=== PATIENT | male | born 1940 | race Caucasian/White ===

== ENCOUNTER 2018-01-24 23:29 | Emergency (ER) | payer OTHER ==
[~2018-01-24] VITALS: Ht 162.6 cm; Wt 84.8 kg
[~2018-01-24 23:29] MED LIST: ARGI500T3 PO; CINN500T PO; FENU1CAP2 PO; GYMNEMA SYLVESTRE PO; LEVO500T78 PO; OMEG10007 PO; PSYL55.43 PO; Potassium PO; RED600TA PO
[2018-01-24 23:38] VITALS: TEMP 37.5; Ht 162.6 cm; Wt 84.8 kg
--- NOTE | 2018-01-24 23:40 | EMERGENCY ROOM VISIT NOTE ---
History Report prepared by Rosy: Kd Foster Under the Supervision of: Dr. Ruiz Goldstein M.D. First contact with patient: 23:32 Chief Complaint: NOSE BLEED (MINOR) Stated Complaint: EPISTAXIS History of Present Illness The patient is a 77 year old white male with a past medical history of DM and trigeminal myalgia surgery who presents to the ED with a cc of constant epistaxis beginning around 2200. The patient states that he was at the sink when he randomly developed right sided epistaxis. Positive tobacco use. Negative blood thinners, falls, lightheadedness, dizziness. Source of History: patient Onset: 0 Position: other (right nostril) Quality: other (bleeding) Timing: constant Note: Negative: lightheadedness, dizziness, falls. Review of Systems See HPI for pertinent positives and negatives. A total of ten systems were reviewed and were otherwise negative. Past Medical & Surgical Medical Problems: (1) Diabetes Family History Diabetes mellitus Social History Smoking Status: Never Smoker Alcohol Use: none Marital Status: Housing Status: lives with significant other Occupation Status: retired Current/Historical Medications Scheduled Amoxicillin & Pot Clavulanate (Augmentin 875-125 mg), 875 MG PO BID Arginine (L-Arginine), 500 MG PO BID Cinnamon (Cinnamon), 1,000 MG PO BID Fenugreek (Trigonella Foenum-G (Fenugreek), 1,220 MG PO BID Fish Oil ([place]-3), 2 CAPSULES PO BID Levocarnitine (L-Carnitine), 500 MG PO BID Psyllium (Metamucil Powder), 1 TBS PO QPM Red Yeast Rice Extract (Red Yeast Rice), 600 MG PO BID [Gymnema Thomas], 400 MG PO BID [Potassium], 1 TABLET PO BID Allergies Coded Allergies: BEE STING (Unverified Allergy, Mild, ANAPHYLAXIS, 02/04/12) No Known Allergies (Verified , 01/06/03) Uncoded Allergies: N (Allergy, Unknown, 01/06/03) NKDA (Allergy, Unknown, 01/06/03) Physical Exam Vital Signs Date Time Temp Pulse Resp B/P (MAP) Pulse Ox O2 Delivery O2 Flow Rate FiO2 01/25/18 01:00 94 21 139/98 93 Room Air 01/25/18 00:31 102 21 120/81 93 Room Air 01/25/18 00:01 122 18 119/87 95 Room Air 01/24/18 23:38 37.5 117 20 181/137 97 Room Air Physical Exam GENERAL: Awake, alert, well-appearing, NAD HENT: Normocephalic, atraumatic. Bleeding to the medial wall of the right nostril. EYES: Normal conjunctiva. Sclera non-icteric. NECK: Supple. No nuchal rigidity. FROM. RESPIRATORY: CTAB, no rhonchi, wheezing, crackles CARDIAC: tachycardic, regular, no MRG ABDOMEN: Soft, NTND, BS+ MSK: No chest wall TTP, no LE edema NEURO: GCS 15, CN 2-12 intact, moves all 4s on command SKIN: No rash or jaundice noted. Medical Decision & Procedures Laboratory Results 01/25/18 00:37 Red Blood Count 4.78, Mean Corpuscular Volume 84.5, Mean Corpuscular Hemoglobin 28.5, Mean Corpuscular Hemoglobin Concent 33.7, Mean Platelet Volume 10.9, Neutrophils (%) (Auto) 67.4, Lymphocytes (%) (Auto) 23.8, Monocytes (%) (Auto) 7.3, Eosinophils (%) (Auto) 1.0, Basophils (%) (Auto) 0.2, Neutrophils # (Auto) 6.09, Lymphocytes # (Auto) 2.15, Monocytes # (Auto) 0.66, Eosinophils # (Auto) 0.09, Basophils # (Auto) 0.02 01/25/18 00:37 Test 01/25/18 00:37 White Blood Count 9.04 K/uL (4.8-10.8) Red Blood Count 4.78 M/uL (4.7-6.1) Hemoglobin 13.6 g/dL (14.0-18.0) Hematocrit 40.4 % (42-52) Mean Corpuscular Volume 84.5 fL (80-100) Mean Corpuscular Hemoglobin 28.5 pg (25-34) Mean Corpuscular Hemoglobin Concent 33.7 g/dl (32-36) Platelet Count 151 K/uL (130-400) Mean Platelet Volume 10.9 fL (7.4-10.4) Neutrophils (%) (Auto) 67.4 % Lymphocytes (%) (Auto) 23.8 % Monocytes (%) (Auto) 7.3 % Eosinophils (%) (Auto) 1.0 % Basophils (%) (Auto) 0.2 % Neutrophils # (Auto) 6.09 K/uL (1.4-6.5) Lymphocytes # (Auto) 2.15 K/uL (1.2-3.4) Monocytes # (Auto) 0.66 K/uL (0.11-0.59) Eosinophils # (Auto) 0.09 K/uL (0-0.5) Basophils # (Auto) 0.02 K/uL (0-0.2) RDW Standard Deviation 40.4 fL (36.4-46.3) RDW Coefficient of Variation 13.2 % (11.5-14.5) Immature Granulocyte % (Auto) 0.3 % Immature Granulocyte # (Auto) 0.03 K/uL (0.00-0.02) Prothrombin Time 11.5 SECONDS (9.0-12.0) Prothromb Time International Ratio 1.1 (0.9-1.1) Activated Partial Thromboplast Time 25.0 SECONDS (21.0-31.0) Partial Thromboplastin Ratio 1.0 Anion Gap 7.0 mmol/L (3-11) Est Creatinine Clear Calc Drug Dose 50.6 ml/min Estimated GFR () 65.5 Estimated GFR (Non- 56.5 BUN/Creatinine Ratio 18.1 (10-20) Calcium Level 8.4 mg/dl (8.5-10.1) Laboratory results reviewed by me Medications Administered Medications (Trade) Dose Ordered Sig/Floyd Route Start Time Stop Time Status Last Admin Dose Admin Lidocaine/ Epinephrine (Buffered Xylocaine/ Epinephrine 1% Inj) 20 ml STK-MED ONCE INFIL 01/24/18 23:53 01/24/18 23:54 DC 01/24/18 23:53 20 ML Sodium Chloride 1,000 ml @ 999 mls/hr Q1H1M STAT IV 01/25/18 00:02 01/25/18 01:02 DC 01/25/18 00:22 999 MLS/HR Ondansetron HCl (Zofran Inj) 4 mg NOW STAT IV 01/25/18 00:18 01/25/18 00:19 DC 01/25/18 00:22 4 MG Procedure Anterior Nasal Packing Indication: Epistaxis Verbal consent obtained. Risks and benefits were explained with the usual customary discussion. A time out was taken. Clots were removed with suction. The right naris was prepped with Afrin and lidocaine. A 5.5-cm nasal balloon was placed in a standard fashion. The patient tolerated this well. Hemostasis was achieved. No complications. ECG Per My Interpretation Indication: tachycardia Rate (beats per minute): 102 Rhythm: sinus tachycardia Findings: left axis deviation, no ectopy ED Course 2348: The patient was evaluated in room A03. A complete history and physical exam was performed. 2358: I performed an anterior nasal packaging. See the procedure notes for further details. 0117: I reevaluated the patient. Discussed results and discharge instructions: He verbalized understanding and agreement. The patient is ready for discharge. Medical Decision Triage Nursing notes reviewed. Prior records reviewed. The patient is a 77 year old white male with a past medical history of DM and trigeminal myalgia surgery who presents to the ED with a cc of constant epistaxis beginning around 2200. The patient's presentation and history were concerning for etiologies such as anterior epistaxis, coagulopathy, traumatic injury, fracture, septal hematoma, posterior epistaxis as well as other pathologies were entertained. Patient was seen and evaluated the bedside. Patient did complain of some epistaxis that began around 10 PM. Patient states it was unprovoked. Patient has had no prior procedures to the area. Patient denies any headaches, chest pain, shortness of breath, dizziness, lightheadedness. The patient did not have any syncope or falls. On exam the patient does have some clot in the posterior pharynx. The patient also does have some bleeding to the septum of the right nares. Patient does have some tachycardia. The patient did have blood work completed along with IV fluids. I did place a 5-1/2 cm anterior Rhino Rocket. Patient tolerated this without difficulty. The patient's blood work did show some mild anemia. Patient did have normal platelet count. Coagulation studies normal. Patient's tachycardia improved with fluids and the patient was in the 90s. Patient was told that he would be called on Friday for an appointment with ENT. If this was unable to be arranged that same day he was supposed to return to the emergency department to have his packing removed. Patient was given a first dose of prophylactic antibiotics. Patient tolerated this without difficulty. Patient was given a prescription for home. Patient was given strict follow-up, discharge, and return precautions. All questions were answered. Patient was deemed suitable for outpatient follow-up at this time. Patient agreed with the plan of care and was safely discharged home. Medication Reconcilliation Current Medication List: was personally reviewed by me Blood Pressure Screening Patient's blood pressure: Normal blood pressure Impression Primary Impression: Epistaxis Additional Impression: Anemia Scribe Attestation The scribe's documentation has been prepared under my direction and personally reviewed by me in its entirety. I confirm that the note above accurately reflects all work, treatment, procedures, and medical decision making performed by me. Departure Information Dispostion Home / Self-Care Prescriptions Amoxicillin & Pot Clavulanate (Augmentin 875-125 mg) 1 Tab Tab 875 MG PO BID for 2 Days, #4 TAB Prov: Ruiz Goldstein M.D. 01/25/18 Referrals Jamli Catalan M.D. (PCP) Soham Herrera M.D. Patient Instructions ED Nosebleed, [facility] Additional Instructions Please return to the emergency department if you have worsening or recurrent symptoms not amenable to at-home treatment. Please call for a follow-up appointment with her primary care physician. Please take your medications as prescribed. If you have other concerns and/or complaints please feel free to also call your primary care physician's office or return the ED for further evaluation, management, and treatment. You were found to have an elevated blood pressure today (>120 sytolic or >90 diastolic). Per medicare guidelines, you need to follow up with this blood pressure screening with your Primary Care Physician (PCP). For a new PCP call [phone]. Take your medications as prescribed. Please take your antibiotics as prescribed. You should take this with food. Consider taking it with either yogurt or a probiotic. You have been examined and treated today on an emergency basis only. This is not a substitute for, or an effort to provide, complete comprehensive medical care. It is impossible to recognize and treat all injuries or illnesses in a single emergency department visit. It is therefore important that you follow up closely with [facility], your PCP, and/or your specialist(s). Call as soon as possible for an appointment. Thank you for your time and consideration. I look forward to speaking with you again soon. Please don't hesitate to call us if you have any questions. Problem Qualifiers Additional Impression: Anemia Anemia type: unspecified type Qualified Codes: D64.9 - Anemia, unspecified
[2018-01-24] MEDS ORDERED: LIDO/EPINEPHRINE/SOD BICARB 20 ML VIAL INFIL ONE (23:53)
[2018-01-25] MEDS ORDERED: SODIUM CHLORIDE 0.9% 1000ML 1,000 ML IV STA (00:02)
[2018-01-25] MEDS ORDERED: XYLOCAINE 1%/SOD BICARB 20 ML VIAL INFIL ONE (00:15)
[2018-01-25] MEDS ORDERED: ONDANSETRON INJ 2 MG/ML 2 ML VIAL IV STA (00:18)
[2018-01-25 00:56] LABS: BASO % 0.2 %; BASO ABS # 0.02 K/uL (0-0.2); EOS ABS # 0.09 K/uL (0-0.5); HEMATOCRIT 40.4 % (42-52); HEMOGLOBIN 13.6 g/dL (14.0-18.0); IG# 0.03 K/uL (0.00-0.02); LYMPH % 23.8 %; LYMPH ABS # 2.15 K/uL (1.2-3.4); MEAN CELL VOLUME 84.5 fL (80-100); MEAN CORPUSCULAR HEMOGLOBIN 28.5 pg (25-34); MEAN CORPUSCULAR HGB CONC 33.7 g/dl (32-36); MEAN PLATELET VOLUME 10.9 fL (7.4-10.4); MONO % 7.3 %; MONO ABS # 0.66 K/uL (0.11-0.59); NEUT % 67.4 %; NEUT ABS # 6.09 K/uL (1.4-6.5); PLATELET COUNT 151 K/uL (130-400); RED CELL DISTRIBUTION WIDTH CV 13.2 % (11.5-14.5); RED CELL DISTRIBUTION WIDTH SD 40.4 fL (36.4-46.3); WHITE BLOOD COUNT 9.04 K/uL (4.8-10.8)
[2018-01-25 01:11] LABS: INR 1.1 (0.9-1.1)
[2018-01-25 01:16] LABS: CALCIUM 8.4 mg/dl (8.5-10.1); CREATININE 1.24 mg/dl (0.60-1.40); POTASSIUM 3.6 mmol/L (3.5-5.1)
[2018-01-25] MEDS ORDERED: AMOX875T PO (01:27)
[2018-01-25] MEDS ORDERED: AMOXICILLIN/CLAVULANATE TAB 875 MG TAB PO ONE (01:30)
[2018-01-25 01:45] VITALS: BP 145/100; PULSE 95; O2SAT 96
== END 2018-01-25 01:48 | disposition home or self-care (01) ==
LOC: EDBD 23:29 → C.EDA 23:30
DX: R04.0 Epistaxis (principal); D64.9 Anemia, unspecified; E11.9 Type 2 diabetes mellitus without complications; Z83.3 Family history of diabetes mellitus; Z91.030 Bee allergy status

== ENCOUNTER 2021-05-03 02:35 | Inpatient (IN) ==
[2021-05-03] MEDS ORDERED: TXA 10% Non-IV Routes 100 MG/ML VIAL TOP ONE (02:38)
[2021-05-03] MEDS ORDERED: LIDOCAINE 4% INH SOLN 4 ML BTL NAE ONE (02:38)
[2021-05-03] MEDS ORDERED: OXYMETAZOLINE 0.05% 30 ML BTL NAE ONE (02:38)
[2021-05-03] MEDS ORDERED: ONDANSETRON 4 MG OD TAB ONE (02:48)
[2021-05-03] MEDS ORDERED: SODIUM CHLORIDE 0.9% 1000ML 1,000 ML IV SCH ×2 (03:30→08:07)
[2021-05-03 03:43] LABS: Basophils # (auto) 0.02 K/uL (0-0.2); Basophils % (auto) 0.2 %; Eosinophils # (auto) 0.09 K/uL (0-0.5); Eosinophils % (auto) 0.8 %; Hematocrit (blood only) 42.8 % (42-52); Hemoglobin 14.1 g/dL (14.0-18.0); Immature Granulocytes # (auto) 0.02 K/uL (0.00-0.02); Immature Granulocytes % (auto) 0.2 %; Lymphocytes % (auto) 21.7 %; Mean Corpuscular Hemoglobin 27.7 pg (25-34); Mean Corpuscular Hgb Conc 32.9 g/dL (32-36); Mean Corpuscular Volume 84.1 fL (80-100); Mean Platelet Volume 11.1 fL (7.4-10.4); Monocytes # (auto) 0.61 K/uL (0.11-0.59); Monocytes % (auto) 5.5 %; Neutrophils # (auto) 7.93 K/uL (1.4-6.5); Neutrophils % (auto) 71.6 %; Platelet Count 182 K/uL (130-400); RDW Coefficient of Variation 13.5 % (11.5-14.5); RDW Standard Deviation 41.9 fL (36.4-46.3); Red Blood Count 5.09 M/uL (4.7-6.1); White Blood Count 11.07 K/uL (4.8-10.8)
[2021-05-03] MEDS ORDERED: ALBUTEROL 0.083% NEBU SOLN 3 ML VIAL NEB STA (03:53)
[2021-05-03 04:04] LABS: Alanine Aminotransferase 23 U/L (12-78); Albumin Level 3.2 gm/dl (3.4-5.0); Aspartate Aminotransferase 15 U/L (15-37); BUN Creatinine Ratio 21.3 (10-20); Blood Urea Nitrogen 26 mg/dl (7-18); Carbon Dioxide 23 mmol/L (21-32); Chloride 113 mmol/L (98-107); Creatinine Clr Calc Pharmacy 61.1 ml/min; Est GFR (African American) 65.4 ml/min; Est GFR (Non-African American) 56.4 ml/min; Glucose 207 mg/dl (70-99); Potassium 3.6 mmol/L (3.5-5.1); Sodium 143 mmol/L (136-145)
[2021-05-03 04:14] LABS: Albumin Globulin Ratio 1.1 (0.9-2); Alkaline Phosphatase 54 U/L (45-117); Bilirubin,Total 0.5 mg/dl (0.2-1); Creatine Kinase 81 U/L (39-308); Globulin 2.8 gm/dl (2.5-4.0); Troponin I < 0.015 ng/ml (0-0.045)
[2021-05-03] MEDS ORDERED: AMOXICILLIN/CLAVULANATE 875 MG TAB PO ONE (04:48)
--- NOTE | 2021-05-03 04:59 | Emergency Department Note ---
Impression & Plan Epistaxis, Vasovagal episode ED Provider Note NAME: GUADALUPE REID AGE: 80 SEX: M : 1940 ARRIVES VIA: Ambulance INFORMANT: Patient, ED PROVIDER(S): Denis Bailey MD CHIEF COMPLAINT: Nosebleed HPI: This is a 80-year-old male who presents to the emergency department complaining of a nosebleed. The patient started bleeding heavily this evening approximately 2 hours ago and has been unable to get the bleeding under control. He has tried applying pressure to his nose without success. He reports nothing seems to make the bleeding any better or worse. He has not taken anything for the bleeding prior to arrival. ROS: See above HPI for pertinent positives & negatives. A total of 10 systems reviewed and were otherwise negative. PAST MEDICAL HISTORY: See Below PAST SURGICAL HISTORY: See Below FAMILY HISTORY: See Below SOCIAL HISTORY: See Below HOME MEDICATIONS: See Below ALLERGIES: See Below VITALS: See Below PHYSICAL EXAMINATION: VITAL SIGNS - Vital signs and nursing notes were reviewed. GENERAL - 80-year-old male appearing stated age who is in no acute distress. Communicates well with provider and answers questions appropriately. SKIN - Without rashes. HEAD - NC/AT. EYES - PERRL with EOMI bilaterally. Sclera anicteric. Palpebral conjunctiva pink and moist with no injection noted. EARS - No deformities of external structures noted on gross examination b ilaterally. NOSE - Midline and without cyanosis. No epistaxis or purulent drainage noted. Septum midline without deviation or septal hematoma noted. MOUTH/OROPHARYNX - Without perioral cyanosis. Buccal mucosa pink and moist and without leukoplakia. Tongue midline with equal elevation of palate bilaterally. No tonsillar hypertrophy, erythema, or exudates noted. NECK - Neck with FROM. Supple to palpation. No nuchal rigidity. LUNGS - Chest wall symmetric without accessory muscle use, intercostals retractions, or central cyanosis. Normal vesicular breath sounds CTA B/L. No wheezes, rales, or rhonchi appreciated. CARDIAC - RRR with S1/S2. No murmur, rubs, or gallops appreciated. ABDOMEN - Abdominal contour without pulsations or visible masses. BS normoactive all four quadrants. No tenderness, palpable masses, hepatosplenomegaly, or ascites noted. EXTREMITIES - No clubbing or peripheral cyanosis. No pretibial edema present. +3/5 radial, posterior tibial, and dorsalis pedis pulses palpated throughout. +5/5 strength noted in UE/LE bilaterally. NEUROLOGIC - Cranial nerves II through XII grossly intact. Sensory intact to light touch throughout. Patellar reflexes +2/4. PSYCH - A&Ox3 and cooperates fully with examiner. Pt is very pleasant and interacts well with examiner. MEDICAL DECISION MAKING: Patient was seen and evaluated as above in room C6. Review was performed of n ursing notes and vital signs. I did review pertinent previous visits and patient history. After obtaining a thorough history and physical examination the above work up was performed. This 80-year-old male who presents emergency department with a significant bleed. I am concerned that this is a posterior nosebleed therefore a balloon was placed. After placement of the balloon the patient had a vasovagal episode therefore an IV was established the patient was given a normal saline bolus. He ambulated very poorly after this and the decision was made to discuss his case with the hospitalist service. I will note his EKG is unchanged he does not have an elevation in his white blood cell count. He was started on Augmentin for the posterior packing. An order was placed for continuous cardiac monitoring. The monitor shows a rate of 97 with Normal Sinus rhythm. The patient was evaluated during a period of high volume and high acuity during the global COVID-19 pandemic, and that diagnosis was suspected/considered upon their initial presentation. Their evaluation, treatment and testing was consistent with current guidelines for patients who present with complaints or symptoms that may be related to COVID-19. Patient was seen while provider was wearing PPE. Triage Nursing notes reviewed. Prior medical records reviewed Vital Signs: reviewed and remarkable for no significant abnormalities Differential diagnosis: Vasovagal event, dehydration, infection, hypoglycemia, electrolyte abnormalities, cardiac sources, intracerebral event, pulmonary embolism, seizure, toxicologic, neurologic, as well as other pathologies. ER treatment provided: See below Diagnostics interpreted by me: ECG: Sinus rhythm first-degree AV block left axis deviation no ST elevation or depression QTC is 479 ventricular rate is 93 EKG is compared to 01/25/2018 and is unchanged Laboratory studies: As stated above and show below. Imaging studies: 1 view the chest was interpreted by me shows no evidence pneumonia congestion or pneumothorax. Consultation(s): Internal Medicine ED COURSE: Procedures: Anterior + posterior Nasal Packing Indication: left nosebleed Verbal consent obtained. Risks and benefits were explained with the usual customary discussion. A time out was taken. Clots were removed with suction. The left naris was prepped with Afrin and lidocaine and TXA. A 7.5-cm nasal balloon was placed in a standard fashion. The patient tolerated this well. Hemostasis was achieved. No complications. PDMP:reviewed and no issues Critical Care: None Past Med/Surg History Medical History Diabetes mellitus, type 2 DIET AND SUPPLEMENT FOR TX. Hypertension Transient ischemic attack (TIA) 2009, NO RESIDUAL EFFECT. Surgical History History of cataract extraction with lens replacement History of colonoscopy History of herniorrhaphy History of repair of rotator cuff B/L History of surgery 2009, [facility], SURGERY FOR TRIGEMINAL NEURALGIA Family History Other Hypertension No family history of adverse response to anesthesia No family history of bleeding disorder Stroke Social History Smoking Status: Former smoker Tobacco Type: Smokeless Tobacco (Dip or Chew) Second Hand Exposure: No; Hx Alcohol Use: No Hx Substance Use: No Preferred Language: Pashto Communication Ability: Effective Drive Tester Required: No Beliefs That Will Affect Care: None Current Living Situation: Spouse Feels Safe at Home: Yes Assistive Devices: None Allergies Allergies Allergy/AdvReac Type Severity Reaction Status Date / Time bee venom protein (honey bee) Allergy Mild ANAPHYLAXIS Verified 05/07/21 10:14 sulfamethoxazole Allergy Rash Verified 05/07/21 10:14 [From Bactrim] trimethoprim [From Bactrim] Allergy Rash Verified 05/07/21 10:14 Home Meds Home Medications Medication Instructions Recorded Confirmed cinnamon bark [Cinnamon] 1,000 mg PO BID 02/17/19 05/07/21 lisinopril 20 mg PO DAILY 02/17/19 05/07/21 Previous Rx's Medication Instructions Recorded amoxicillin-pot clavulanate 1 tab PO BID #6 tab 05/03/21 [Augmentin] amlodipine [Norvasc] 5 mg PO QAM #30 tab 05/05/21 ergocalciferol (vitamin D2) 50,000 unit PO Q7D #5 cap 05/05/21 metoprolol succinate 50 mg PO QAM #30 tab 05/05/21 sodium chloride [Saline Nasal] 1 spray INTRANASAL TID #15 ml 05/05/21 mupirocin 2 % topical ointment 1 applic TOPICAL BID #15 g 05/07/21 Results & Data (ED) Vital Signs Vital Signs - 24 hr 05/03/21 02:38 05/03/21 03:21 05/03/21 04:00 Pulse Rate 82 89 68 Pulse Rate [Apical] 67 Pulse Rhythm Regular Respiratory Rate 18 20 Respiratory Effort / Characteristics Blood Pressure 166/122 H 93/66 L Blood Pressure [Right Arm] 93/66 L Blood Pressure Mean 136 75 Blood Pressure Mean [Right Arm] 75 Pulse Oximetry 96 90 98 Oxygen Delivery Method Room Air Room Air Sepsis Recent Fever Within 48 Hours No Sepsis New/Unexplained Change in Mental Status N/A Sepsis Action Taken by Nursing No Action Required 05/03/21 04:05 05/03/21 04:26 Pulse Rate 99 H Pulse Rate [Apical] 92 H Pulse Rhythm Respiratory Rate 18 20 Respiratory Effort / Characteristics Non-Labored Spontaneous Blood Pressure 174/107 H Blood Pressure [Right Arm] Blood Pressure Mean 129 Blood Pressure Mean [Right Arm] Pulse Oximetry 96 97 Oxygen Delivery Method Room Air Sepsis Recent Fever Within 48 Hours Sepsis New/Unexplained Change in Mental Status Sepsis Action Taken by [facility] Medications Current Medication List: was personally reviewed by me Laboratory Data Attestation: I reviewed the patient's lab results. Result diagrams: 05/05/21 09:43 05/05/21 09:43 Lab Results 05/03/21 05/03/21 05/03/21 Range/Units 03:32 03:34 03:34 WBC 11.07 H (4.8-10.8) K/uL RBC 5.09 (4.7-6.1) M/uL Hgb 14.1 (14.0-18.0) g/dL Hct 42.8 (42-52) % MCV 84.1 (80-100) fL MCH 27.7 (25-34) pg MCHC 32.9 (32-36) g/dL RDW Std Deviation 41.9 (36.4-46.3) fL RDW Coeff of Zachary 13.5 (11.5-14.5) % Plt Count 182 (130-400) K/uL MPV 11.1 H (7.4-10.4) fL Immature Gran % (Auto) 0.2 % Neut % (Auto) 71.6 % Lymph % (Auto) 21.7 % [place] % (Auto) 5.5 % Eos % (Auto) 0.8 % Baso % (Auto) 0.2 % Neut # (Auto) 7.93 H (1.4-6.5) K/uL Lymph # (Auto) 2.40 (1.2-3.4) K/uL [place] # (Auto) 0.61 H (0.11-0.59) K/uL Eos # (Auto) 0.09 (0-0.5) K/uL Baso # (Auto) 0.02 (0-0.2) K/uL Immature Gran # (Auto) 0.02 (0.00-0.02) K/uL Sodium 143 (136-145) mmol/L Potassium 3.6 (3.5-5.1) mmol/L Chloride 113 H (98-107) mmol/L Carbon Dioxide 23 (21-32) mmol/L Anion Gap 7.0 (3-11) BUN 26 H (7-18) mg/dl Creatinine 1.22 (0.6-1.4) mg/dl Est Cr Clr Drug Dosing 61.1 ml/min Est GFR ( Amer) 65.4 ml/min Est GFR (Non-Af Amer) 56.4 ml/min BUN/Creatinine Ratio 21.3 H (10-20) Glucose 207 H (70-99) mg/dl POC Glucose 204 H (70-99) mg/dl Estimat Average Glucose mg/dl Hemoglobin A1c (4.5-5.6) % Calcium 8.0 L (8.5-10.1) mg/dl Ionized Calcium (1.12-1.32) mmol/L Magnesium (1.8-2.4) mg/dl Total Bilirubin 0.5 (0.2-1) mg/dl AST 15 (15-37) U/L ALT 23 (12-78) U/L Alkaline Phosphatase 54 (45-117) U/L Total Creatine Kinase 81 (39-308) U/L Troponin I < 0.015 (0-0.045) ng/ml Total Protein 6.0 L (6.4-8.2) gm/dl Albumin 3.2 L (3.4-5.0) gm/dl Globulin 2.8 (2.5-4.0) gm/dl Albumin/Globulin Ratio 1.1 (0.9-2) 25-OH Vitamin D Total (30-100) ng/ml TSH 4.350 (0.300-4.500) uIu/ml Urine Color Urine Appearance (Clear) Urine pH (4.5-7.5) Ur Specific Beattie (1.000-1.030) Urine Protein (Negative) Urine Glucose (UA) (Negative) Urine Ketones (Negative) Urine Blood (Negative) Urine Nitrite (Negative) Urine Bilirubin (Negative) Urine Urobilinogen (Negative) Ur Leukocyte Esterase (Negative) Urine RBC (0-4) /hpf Urine WBC (0-5) /hpf Ur Epithelial Cells (0-5) /lpf Urine Bacteria (Negative) COVID-19 Eval Order SARS-CoV-2 (PCR) (Negative) 05/03/21 05/03/21 05/03/21 Range/Units 04:00 04:00 05:10 WBC (4.8-10.8) K/uL RBC (4.7-6.1) M/uL Hgb (14.0-18.0) g/dL Hct (42-52) % MCV (80-100) fL MCH (25-34) pg MCHC (32-36) g/dL RDW Std Deviation (36.4-46.3) fL RDW Coeff of Zachary (11.5-14.5) % Plt Count (130-400) K/uL MPV (7.4-10.4) fL Immature Gran % (Auto) % Neut % (Auto) % Lymph % (Auto) % [place] % (Auto) % Eos % (Auto) % Baso % (Auto) % Neut # (Auto) (1.4-6.5) K/uL Lymph # (Auto) (1.2-3.4) K/uL [place] # (Auto) (0.11-0.59) K/uL Eos # (Auto) (0-0.5) K/uL Baso # (Auto) (0-0.2) K/uL Immature Gran # (Auto) (0.00-0.02) K/uL Sodium (136-145) mmol/L Potassium (3.5-5.1) mmol/L Chloride (98-107) mmol/L Carbon Dioxide (21-32) mmol/L Anion Gap (3-11) BUN (7-18) mg/dl Creatinine (0.6-1.4) mg/dl Est Cr Clr Drug Dosing ml/min Est GFR ( Amer) ml/min Est GFR (Non-Af Amer) ml/min BUN/Creatinine Ratio (10-20) Glucose (70-99) mg/dl POC Glucose (70-99) mg/dl Estimat Average Glucose mg/dl Hemoglobin A1c (4.5-5.6) % Calcium (8.5-10.1) mg/dl Ionized Calcium (1.12-1.32) mmol/L Magnesium (1.8-2.4) mg/dl Total Bilirubin (0.2-1) mg/dl AST (15-37) U/L ALT (12-78) U/L Alkaline Phosphatase (45-117) U/L Total Creatine Kinase (39-308) U/L Troponin I (0-0.045) ng/ml Total Protein (6.4-8.2) gm/dl Albumin (3.4-5.0) gm/dl Globulin (2.5-4.0) gm/dl Albumin/Globulin Ratio (0.9-2) 25-OH Vitamin D Total (30-100) ng/ml TSH (0.300-4.500) uIu/ml Urine Color Yellow Urine Appearance Clear (Clear) Urine pH 7.0 (4.5-7.5) Ur Specific [place]attie 1.020 (1.000-1.030) Urine Protein 1+ H (Negative) Urine Glucose (UA) Negative (Negative) Urine Ketones Trace H (Negative) Urine Blood Trace-intact H (Negative) Urine Nitrite Negative (Negative) Urine Bilirubin Negative (Negative) Urine Urobilinogen Negative (Negative) Ur Leukocyte Esterase Negative (Negative) Urine RBC 0-4 (0-4) /hpf Urine WBC 0-5 (0-5) /hpf Ur Epithelial Cells 10-20 H (0-5) /lpf Urine Bacteria Negative (Negative) COVID-19 Eval Order Covid19 at [facility] SARS-CoV-2 (PCR) NEGATIVE (Negative) 05/03/21 05/03/21 05/03/21 Range/Units 09:01 09:01 09:01 WBC (4.8-10.8) K/uL RBC (4.7-6.1) M/uL Hgb (14.0-18.0) g/dL Hct (42-52) % MCV (80-100) fL MCH (25-34) pg MCHC (32-36) g/dL RDW Std Deviation (36.4-46.3) fL RDW Coeff of Zachary (11.5-14.5) % Plt Count (130-400) K/uL MPV (7.4-10.4) fL Immature Gran % (Auto) % Neut % (Auto) % Lymph % (Auto) % [place] % (Auto) % Eos % (Auto) % Baso % (Auto) % Neut # (Auto) (1.4-6.5) K/uL Lymph # (Auto) (1.2-3.4) K/uL [place] # (Auto) (0.11-0.59) K/uL Eos # (Auto) (0-0.5) K/uL Baso # (Auto) (0-0.2) K/uL Immature Gran # (Auto) (0.00-0.02) K/uL Sodium (136-145) mmol/L Potassium (3.5-5.1) mmol/L Chloride (98-107) mmol/L Carbon Dioxide (21-32) mmol/L Anion Gap (3-11) BUN (7-18) mg/dl Creatinine (0.6-1.4) mg/dl Est Cr Clr Drug Dosing ml/min Est GFR ( Amer) ml/min Est GFR (Non-Af Amer) ml/min BUN/Creatinine Ratio (10-20) Glucose (70-99) mg/dl POC Glucose (70-99) mg/dl Estimat Average Glucose mg/dl Hemoglobin A1c (4.5-5.6) % Calcium (8.5-10.1) mg/dl Ionized Calcium 1.15 (1.12-1.32) mmol/L Magnesium (1.8-2.4) mg/dl Total Bilirubin (0.2-1) mg/dl AST (15-37) U/L ALT (12-78) U/L Alkaline Phosphatase (45-117) U/L Total Creatine Kinase (39-308) U/L Troponin I < 0.015 (0-0.045) ng/ml Total Protein (6.4-8.2) gm/dl Albumin (3.4-5.0) gm/dl Globulin (2.5-4.0) gm/dl Albumin/Globulin Ratio (0.9-2) 25-OH Vitamin D Total 15.4 L (30-100) ng/ml TSH (0.300-4.500) uIu/ml Urine Color Urine Appearance (Clear) Urine pH (4.5-7.5) Ur Specific Beattie (1.000-1.030) Urine Protein (Negative) Urine Glucose (UA) (Negative) Urine Ketones (Negative) Urine Blood (Negative) Urine Nitrite (Negative) Urine Bilirubin (Negative) Urine Urobilinogen (Negative) Ur Leukocyte Esterase (Negative) Urine RBC (0-4) /hpf Urine WBC (0-5) /hpf Ur Epithelial Cells (0-5) /lpf Urine Bacteria (Negative) COVID-19 Eval Order SARS-CoV-2 (PCR) (Negative) 05/03/21 05/03/21 05/03/21 Range/Units 09:07 11:43 15:07 WBC (4.8-10.8) K/uL RBC (4.7-6.1) M/uL Hgb (14.0-18.0) g/dL Hct (42-52) % MCV (80-100) fL MCH (25-34) pg MCHC (32-36) g/dL RDW Std Deviation (36.4-46.3) fL RDW Coeff of Zachary (11.5-14.5) % Plt Count (130-400) K/uL MPV (7.4-10.4) fL Immature Gran % (Auto) % Neut % (Auto) % Lymph % (Auto) % [place] % (Auto) % Eos % (Auto) % Baso % (Auto) % Neut # (Auto) (1.4-6.5) K/uL Lymph # (Auto) (1.2-3.4) K/uL [place] # (Auto) (0.11-0.59) K/uL Eos # (Auto) (0-0.5) K/uL Baso # (Auto) (0-0.2) K/uL Immature Gran # (Auto) (0.00-0.02) K/uL Sodium (136-145) mmol/L Potassium (3.5-5.1) mmol/L Chloride (98-107) mmol/L Carbon Dioxide (21-32) mmol/L Anion Gap (3-11) BUN (7-18) mg/dl Creatinine (0.6-1.4) mg/dl Est Cr Clr Drug Dosing ml/min Est GFR ( Amer) ml/min Est GFR (Non-Af Amer) ml/min BUN/Creatinine Ratio (10-20) Glucose (70-99) mg/dl POC Glucose 142 H 165 H (70-99) mg/dl Estimat Average Glucose mg/dl Hemoglobin A1c (4.5-5.6) % Calcium (8.5-10.1) mg/dl Ionized Calcium (1.12-1.32) mmol/L Magnesium (1.8-2.4) mg/dl Total Bilirubin (0.2-1) mg/dl AST (15-37) U/L ALT (12-78) U/L Alkaline Phosphatase (45-117) U/L Total Creatine Kinase (39-308) U/L Troponin I < 0.015 (0-0.045) ng/ml Total Protein (6.4-8.2) gm/dl Albumin (3.4-5.0) gm/dl Globulin (2.5-4.0) gm/dl Albumin/Globulin Ratio (0.9-2) 25-OH Vitamin D Total (30-100) ng/ml TSH (0.300-4.500) uIu/ml Urine Color Urine Appearance (Clear) Urine pH (4.5-7.5) Ur Specific [place]att[place] (1.000-1.030) Urine Protein (Negative) Urine Glucose (UA) (Negative) Urine Ketones (Negative) Urine Blood (Negative) Urine Nitrite (Negative) Urine Bilirubin (Negative) Urine Urobilinogen (Negative) Ur Leukocyte Esterase (Negative) Urine RBC (0-4) /hpf Urine WBC (0-5) /hpf Ur Epithelial Cells (0-5) /lpf Urine Bacteria (Negative) COVID-19 Eval Order SARS-CoV-2 (PCR) (Negative) 05/03/21 05/03/21 05/03/21 Range/Units 15:07 16:20 20:45 WBC (4.8-10.8) K/uL RBC (4.7-6.1) M/uL Hgb (14.0-18.0) g/dL Hct (42-52) % MCV (80-100) fL MCH (25-34) pg MCHC (32-36) g/dL RDW Std Deviation (36.4-46.3) fL RDW Coeff of Zachary (11.5-14.5) % Plt Count (130-400) K/uL MPV (7.4-10.4) fL Immature Gran % (Auto) % Neut % (Auto) % Lymph % (Auto) % [place] % (Auto) % Eos % (Auto) % Baso % (Auto) % Neut # (Auto) (1.4-6.5) K/uL Lymph # (Auto) (1.2-3.4) K/uL [place] # (Auto) (0.11-0.59) K/uL Eos # (Auto) (0-0.5) K/uL Baso # (Auto) (0-0.2) K/uL Immature Gran # (Auto) (0.00-0.02) K/uL Sodium (136-145) mmol/L Potassium (3.5-5.1) mmol/L Chloride (98-107) mmol/L Carbon Dioxide (21-32) mmol/L Anion Gap (3-11) BUN (7-18) mg/dl Creatinine (0.6-1.4) mg/dl Est Cr Clr Drug Dosing ml/min Est GFR ( Amer) ml/min Est GFR (Non-Af Amer) ml/min BUN/Creatinine Ratio (10-20) Glucose (70-99) mg/dl POC Glucose 112 H 155 H (70-99) mg/dl Estimat Average Glucose mg/dl Hemoglobin A1c (4.5-5.6) % Calcium (8.5-10.1) mg/dl Ionized Calcium (1.12-1.32) mmol/L Magnesium 2.1 (1.8-2.4) mg/dl Total Bilirubin (0.2-1) mg/dl AST (15-37) U/L ALT (12-78) U/L Alkaline Phosphatase (45-117) U/L Total Creatine Kinase (39-308) U/L Troponin I (0-0.045) ng/ml Total Protein (6.4-8.2) gm/dl Albumin (3.4-5.0) gm/dl Globulin (2.5-4.0) gm/dl Albumin/Globulin Ratio (0.9-2) 25-OH Vitamin D Total (30-100) ng/ml TSH (0.300-4.500) uIu/ml Urine Color Urine Appearance (Clear) Urine pH (4.5-7.5) Ur Specific [place]attie (1.000-1.030) Urine Protein (Negative) Urine Glucose (UA) (Negative) Urine Ketones (Negative) Urine Blood (Negative) Urine Nitrite (Negative) Urine Bilirubin (Negative) Urine Urobilinogen (Negative) Ur Leukocyte Esterase (Negative) Urine RBC (0-4) /hpf Urine WBC (0-5) /hpf Ur Epithelial Cells (0-5) /lpf Urine Bacteria (Negative) COVID-19 Eval Order SARS-CoV-2 (PCR) (Negative) 05/04/21 05/04/21 05/04/21 Range/Units 05:28 05:28 05:28 WBC 11.11 H (4.8-10.8) K/uL RBC 4.92 (4.7-6.1) M/uL Hgb 13.4 L (14.0-18.0) g/dL Hct 40.8 L (42-52) % MCV 82.9 (80-100) fL MCH 27.2 (25-34) pg MCHC 32.8 (32-36) g/dL RDW Std Deviation 41.6 (36.4-46.3) fL RDW Coeff of Zachary 13.9 (11.5-14.5) % Plt Count 164 (130-400) K/uL MPV 11.1 H (7.4-10.4) fL Immature Gran % (Auto) 0.1 % Neut % (Auto) 74.4 % Lymph % (Auto) 17.1 % [place] % (Auto) 8.0 % Eos % (Auto) 0.3 % Baso % (Auto) 0.1 % Neut # (Auto) 8.27 H (1.4-6.5) K/uL Lymph # (Auto) 1.90 (1.2-3.4) K/uL [place] # (Auto) 0.89 H (0.11-0.59) K/uL Eos # (Auto) 0.03 (0-0.5) K/uL Baso # (Auto) 0.01 (0-0.2) K/uL Immature Gran # (Auto) 0.01 (0.00-0.02) K/uL Sodium 140 (136-145) mmol/L Potassium 3.8 (3.5-5.1) mmol/L Chloride 112 H (98-107) mmol/L Carbon Dioxide 23 (21-32) mmol/L Anion Gap 5.0 (3-11) BUN 26 H (7-18) mg/dl Creatinine 0.86 D (0.6-1.4) mg/dl Est Cr Clr Drug Dosing 69.5 ml/min Est GFR ( Amer) 96.3 ml/min Est GFR (Non-Af Amer) 83.1 ml/min BUN/Creatinine Ratio 30.4 H (10-20) Glucose 149 H (70-99) mg/dl POC Glucose (70-99) mg/dl Estimat Average Glucose 157 mg/dl Hemoglobin A1c 7.1 H (4.5-5.6) % Calcium 8.2 L (8.5-10.1) mg/dl Ionized Calcium (1.12-1.32) mmol/L Magnesium 2.0 (1.8-2.4) mg/dl Total Bilirubin (0.2-1) mg/dl AST (15-37) U/L ALT (12-78) U/L Alkaline Phosphatase (45-117) U/L Total Creatine Kinase (39-308) U/L Troponin I (0-0.045) ng/ml Total Protein (6.4-8.2) gm/dl Albumin (3.4-5.0) gm/dl Globulin (2.5-4.0) gm/dl Albumin/Globulin Ratio (0.9-2) 25-OH Vitamin D Total (30-100) ng/ml TSH (0.300-4.500) uIu/ml Urine Color Urine Appearance (Clear) Urine pH (4.5-7.5) Ur Specific [place]attie (1.000-1.030) Urine Protein (Negative) Urine Glucose (UA) (Negative) Urine Ketones (Negative) Urine Blood (Negative) Urine Nitrite (Negative) Urine Bilirubin (Negative) Urine Urobilinogen (Negative) Ur Leukocyte Esterase (Negative) Urine RBC (0-4) /hpf Urine WBC (0-5) /hpf Ur Epithelial Cells (0-5) /lpf Urine Bacteria (Negative) COVID-19 Eval Order SARS-CoV-2 (PCR) (Negative) 05/04/21 Range/Units 07:01 WBC (4.8-10.8) K/uL RBC (4.7-6.1) M/uL Hgb (14.0-18.0) g/dL Hct (42-52) % MCV (80-100) fL MCH (25-34) pg MCHC (32-36) g/dL RDW Std Deviation (36.4-46.3) fL RDW Coeff of Zachary (11.5-14.5) % Plt Count (130-400) K/uL MPV (7.4-10.4) fL Immature Gran % (Auto) % Neut % (Auto) % Lymph % (Auto) % [place] % (Auto) % Eos % (Auto) % Baso % (Auto) % Neut # (Auto) (1.4-6.5) K/uL Lymph # (Auto) (1.2-3.4) K/uL [place] # (Auto) (0.11-0.59) K/uL Eos # (Auto) (0-0.5) K/uL Baso # (Auto) (0-0.2) K/uL Immature Gran # (Auto) (0.00-0.02) K/uL Sodium (136-145) mmol/L Potassium (3.5-5.1) mmol/L Chloride (98-107) mmol/L Carbon Dioxide (21-32) mmol/L Anion Gap (3-11) BUN (7-18) mg/dl Creatinine (0.6-1.4) mg/dl Est Cr Clr Drug Dosing ml/min Est GFR ( Amer) ml/min Est GFR (Non-Af Amer) ml/min BUN/Creatinine Ratio (10-20) Glucose (70-99) mg/dl POC Glucose 154 H (70-99) mg/dl Estimat Average Glucose mg/dl Hemoglobin A1c (4.5-5.6) % Calcium (8.5-10.1) mg/dl Ionized Calcium (1.12-1.32) mmol/L Magnesium (1.8-2.4) mg/dl Total Bilirubin (0.2-1) mg/dl AST (15-37) U/L ALT (12-78) U/L Alkaline Phosphatase (45-117) U/L Total Creatine Kinase (39-308) U/L Troponin I (0-0.045) ng/ml Total Protein (6.4-8.2) gm/dl Albumin (3.4-5.0) gm/dl Globulin (2.5-4.0) gm/dl Albumin/Globulin Ratio (0.9-2) 25-OH Vitamin D Total (30-100) ng/ml TSH (0.300-4.500) uIu/ml Urine Color Urine Appearance (Clear) Urine pH (4.5-7.5) Ur Specific [place] (1.000-1.030) Urine Protein (Negative) Urine Glucose (UA) (Negative) Urine Ketones (Negative) Urine Blood (Negative) Urine Nitrite (Negative) Urine Bilirubin (Negative) Urine Urobilinogen (Negative) Ur Leukocyte Esterase (Negative) Urine RBC (0-4) /hpf Urine WBC (0-5) /hpf Ur Epithelial Cells (0-5) /lpf Urine Bacteria (Negative) COVID-19 Eval Order SARS-CoV-2 (PCR) (Negative) Administered Medications Discontinued Medications Acetaminophen (Acetaminophen 325 Mg Tab) 650 mg PO Q4H PRN PRN Reason: Pain or Fever Stop: 06/02/21 08:06 Last Admin: 05/04/21 05:05 Dose: 650 mg Documented by: [id number] Albuterol (Albuterol 0.083% Nebu Soln 3 Ml Vial) 2.5 mg NEB NOW STA Stop: 05/03/21 03:54 Last Admin: 05/03/21 04:04 Dose: 2.5 mg Documented by: [id number] Amlodipine Besylate (Amlodipine Besylate 5 Mg Tab) [facility] [place] Stop: 06/02/21 16:44 Last Admin: 05/03/21 19:04 Dose: 2.5 mg Documented by: [id number] Amlodipine Besylate (Amlodipine Besylate 5 Mg Tab) 5 [facility] [place] Stop: 06/03/21 08:59 Last Admin: 05/05/21 09:16 Dose: 5 mg Documented by: [id number] Admin: 05/04/21 08:16 Dose: 5 mg Documented by: [id number] Amoxicillin/Clavulanate Potassium (Amoxicillin/Clavulanate 875 Mg Tab) 1 tab PO NOW ONE Stop: 05/03/21 04:49 Last Admin: 05/03/21 05:10 Dose: 1 tab Documented by: [id number] Amoxicillin/Clavulanate Potassium (Amoxicillin/Clavulanate 875 Mg Tab) 1 tab PO BIDM [facility] Stop: 05/13/21 19:59 Last Admin: 05/05/21 08:42 Dose: 1 tab Documented by: [id number] Admin: 05/04/21 17:14 Dose: 1 tab Documented by: [id number] Admin: 05/04/21 08:16 Dose: 1 tab Documented by: [id number] Admin: 05/03/21 21:04 Dose: 1 tab Documented by: [id number] Ergocalciferol (Ergocalciferol 50,000 Units 1250 Mcg Cap) 50,000 units PO Q7D [facility] Stop: 06/02/21 20:59 Last Admin: 05/03/21 21:04 Dose: 50,000 units Documented by: [id number] Haloperidol Lactate (Haloperidol Lactate 5 Mg/Ml 1 Ml Vial) 1 mg IM NOW STA Stop: 05/05/21 02:16 Last Admin: 05/05/21 02:17 Dose: 1 mg Documented by: [id number] Haloperidol Lactate (Haloperidol Lactate 5 Mg/Ml 1 Ml Vial) Confirm Administered Dose 5 mg .ROUTE .STK-MED ONE Stop: 05/05/21 02:14 Last Admin: 05/05/21 02:20 Dose: Not Given Documented by: [id number] Haloperidol Lactate (Haloperidol Lactate 5 Mg/Ml 1 Ml Vial) 2 mg IM NOW STA Stop: 05/05/21 03:03 Last Admin: 05/05/21 03:24 Dose: 2 mg Documented by: [id number] Haloperidol Lactate (Haloperidol Lactate 5 Mg/Ml 1 Ml Vial) 1 mg IM NOW STA Stop: 05/05/21 04:41 Last Admin: 05/05/21 04:49 Dose: 1 mg Documented by: [id number] Hydralazine HCl (Hydralazine Hcl 20 Mg/Ml Vial) 5 mg IV NOW ONE Stop: 05/04/21 01:37 Last Admin: 05/04/21 01:49 Dose: 5 mg Documented by: [id number] Sodium Chloride (Nss 1000ml) 1,000 mls @ 999 mls/hr IV .Q1H1M [place] Stop: 05/03/21 04:30 Last Infusion: 05/03/21 04:28 Dose: 0 mls/hr Documented by: [id number] Admin: 05/03/21 03:22 Dose: 999 mls/hr Documented by: [id number] Sodium Chloride (Nss 1000ml) 1,000 mls @ 75 mls/hr IV .[id number] [place] Stop: 05/03/21 21:26 Last Infusion: 05/03/21 18:38 Dose: 0 mls/hr Documented by: [id number] Admin: 05/03/21 09:21 Dose: 75 mls/hr Documented by: [id number] Insulin Aspart (Insulin Aspart 100 Units/Ml 3 Ml Pen) 0 units SC ACHS [facility] Stop: 06/02/21 08:06 Last Admin: 05/05/21 12:03 Dose: Not Given Documented by: [id number] Cosigned by: [id number] Admin: 05/05/21 07:00 Dose: Not Given Documented by: [id number] Cosigned by: [id number] Admin: 05/04/21 20:14 Dose: Not Given Documented by: [id number] Admin: 05/04/21 16:55 Dose: Not Given Documented by: [id number] Cosigned by: [id number] Admin: 05/04/21 12:08 Dose: Not Given Documented by: [id number] Admin: 05/04/21 08:17 Dose: 1 units Documented by: [id number] Cosigned by: [id number] Admin: 05/03/21 21:05 Dose: 1 units Documented by: [id number] Cosigned by: [id number] Admin: 05/03/21 17:36 Dose: Not Given Documented by: [id number] Admin: 05/03/21 11:51 Dose: Not Given Documented by: [id number] Admin: 05/03/21 09:22 Dose: Not Given Documented by: [id number] Labetalol HCl (Labetalol Hcl Iv 5 Mg/Ml 20ml) 10 mg IV NOW STA Stop: 05/03/21 19:56 Last Admin: 05/03/21 20:17 Dose: 10 mg Documented by: [id number] Cosigned by: [id number] Labetalol HCl (Labetalol Hcl Iv 5 Mg/Ml 20ml) 10 mg IV Q4H PRN PRN Reason: Hypertension Stop: 06/02/21 19:55 Last Admin: 05/04/21 05:03 Dose: 10 mg Documented by: [id number] Cosigned by: [id number] Admin: 05/03/21 22:15 Dose: 10 mg Documented by: [id number] Cosigned by: [id number] Labetalol HCl (Labetalol Hcl Iv 5 Mg/Ml 20ml) 10 mg IV NOW STA Stop: 05/03/21 23:40 Last Admin: 05/04/21 00:11 Dose: 10 mg Documented by: [id number] Cosigned by: [id number] Lidocaine HCl (Lidocaine 4% Inh Soln 4 Ml Btl) 1.5 ml DAIANA NOW ONE Stop: 05/03/21 02:39 Last Admin: 05/03/21 03:10 Dose: 1.5 ml Documented by: [id number] Lisinopril (Lisinopril 20 Mg Tab) 20 mg PO DAILY [facility] Stop: 06/02/21 08:59 Last Admin: 05/05/21 08:42 Dose: 20 mg Documented by: [id number] Admin: 05/04/21 08:16 Dose: 20 mg Documented by: [id number] Admin: 05/03/21 11:03 Dose: 20 mg Documented by: [id number] Lorazepam (Lorazepam 0.5 Mg Tab) 0.5 mg PO NOW STA Stop: 05/05/21 00:33 Last Admin: 05/05/21 00:43 Dose: Not Given Documented by: [id number] Lorazepam (Lorazepam 0.5 Mg Tab) Confirm Administered Dose 0.5 mg .ROUTE .STK- MED ONE Stop: 05/05/21 00:39 Last Admin: 05/05/21 00:40 Dose: 0.5 mg Documented by: [id number] Metoprolol Succinate (Metoprolol Succ 25mg Ext Rel Tab) 25 mg PO QAM [facility] Stop: 06/03/21 10:14 Last Admin: 05/05/21 08:42 Dose: 25 mg Documented by: [id number] Admin: 05/04/21 11:24 Dose: 25 mg Documented by: [id number] Metoprolol Succinate (Metoprolol Succ 25mg Ext Rel Tab) 25 mg PO NOW ONE Stop: 05/05/21 12:48 Last Admin: 05/05/21 13:53 Dose: 25 mg Documented by: [id number] Nitroglycerin (Nitroglycerin 2% Ointment 30gm Tube) 0.5 inch EXT Q6H [facility] Stop: 06/03/21 00:00 Last Admin: 05/04/21 00:12 Dose: 0.5 inch Documented by: [id number] Nitroglycerin (Nitroglycerin 2% Ointment 30gm Tube) Confirm Administered Dose 18 inch .ROUTE .STK-MED ONE Stop: 05/04/21 00:02 Last Admin: 05/04/21 00:17 Dose: Not Given Documented by: [id number] Nitroglycerin (Nitroglycerin 2% Ointment 30gm Tube) 1 inch EXT Q6H [facility] Stop: 06/03/21 01:59 Last Admin: 05/04/21 01:49 Dose: 1 inch Documented by: [id number] Ondansetron HCl (Ondansetron 4 Mg Od Tab) Confirm Administered Dose 4 mg .ROUTE .STK-MED ONE Stop: 05/03/21 02:49 Last Admin: 05/03/21 03:22 Dose: 4 mg Documented by: [id number] Oxymetazoline HCl (Oxymetazoline 0.05% 30 Ml Btl) 1 sprays DAIANA NOW ONE Stop: 05/03/21 02:39 Last Admin: 05/03/21 03:10 Dose: 1 sprays Documented by: [id number] Potassium Chloride (Potassium Chloride Crtab 20 Meq Tabcr) 20 meq PO NOW STA Stop: 05/03/21 10:38 Last Admin: 05/03/21 11:03 Dose: 20 meq Documented by: [id number] Tranexamic Acid (Txa 10% Non-Iv Routes 100 Mg/Ml Vial) 1,000 mg TOP ONE ONE Stop: 05/03/21 02:39 Last Admin: 05/03/21 03:10 Dose: 1,000 mg Documented by: [id number] Discharge Plan Visit Data Chief Complaint: Nose Bleed (Minor) Stated Complaint: Nose bleed ED Provider: Denis Bailey Discharge Problem: Epistaxis, Vasovagal episode Patient Disposition: Admitted As Inpatient Condition: Good Discharge Instructions Interventions: ED Discharge Assessment Last Done: 05/03/21 06:30
[2021-05-03 05:19] LABS: Appearance Urine Clear (Clear); Bilirubin Urine Negative (Negative); Blood Urine Trace-intact (Negative); Color Urine Yellow; Glucose Urine UA Negative (Negative); Ketones Urine Trace (Negative); Leukocyte Esterase Urine Negative (Negative); Nitrite Urine Negative (Negative); Protein Urine 1+ (Negative); Urobilinogen Urine Negative (Negative)
[2021-05-03 05:55] LABS: Bacteria Urine Negative (Negative); RBC Urine 0-4 /hpf (0-4); WBC Urine 0-5 /hpf (0-5)
--- NOTE | 2021-05-03 06:51 | XRay Report ---
XR chest 1V portable CLINICAL HISTORY: weakness COMPARISON STUDY: Chest radiograph May 18, 2014. FINDINGS: Old left clavicular fracture is incidentally noted. Lung volumes are mildly diminished. The re is no pneumothorax or pleural effusion. There is no consolidation or evidence for pulmonary edema. There may be mild dilatation of the aortic arch. Cardiac size is stable. Patient is mildly rotated. IMPRESSION: No acute cardiopulmonary findings. ACT 112: Negative or not required by law. Electronically signed by: Roverto Koch M.D. 05/03/2021 6:50 AM
[2021-05-03] MEDS ORDERED: ACETAMINOPHEN 325 MG TAB PO PRN (08:07)
[2021-05-03] MEDS ORDERED: NITROGLYCERIN SL 0.4 MG/TAB TAB SL PRN (08:07)
[2021-05-03] MEDS ORDERED: ONDANSETRON INJ 2 MG/ML 2 ML VIAL IV PRN (08:07)
--- NOTE | 2021-05-03 09:15 | Ultrasound Report ---
BILATERAL CAROTID DOPPLER STUDY HISTORY: near syncope COMPARISON: None. TECHNIQUE: Real-time, grayscale, and color Doppler sonography of the carotid arteries was performed. Imaging reviewed in the transverse and longitudinal planes. All measurements were calculated based on NASCET criteria. FINDINGS: Antegrade flow is seen in the bilateral vertebral arteries. The brachial pressures were not obtained. Mild calcified plaque within the bilateral carotid bifurcations. The peak systolic velocity within the right ICA is 53 cm/s. The right systolic ratio is 0.8. The peak systolic velocity within the left ICA is 76 cm/s. The left systolic ratio is 1.3. Mildly elevated peak systolic velocity within the proximal left external carotid artery consistent wi th an area of mild stenosis. IMPRESSION: No hemodynamically significant stenosis seen within the bilateral common or internal carotid arteries . ACT 112: Negative or not required by law. Electronically signed by: Jaspreet Smith M.D. 05/03/2021 9:14 AM
--- NOTE | 2021-05-03 09:18 | History and Physical Report ---
DATE OF ADMISSION: 05/03/2021 CHIEF COMPLAINT: Nosebleed and near syncope. 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 Around 1:00 a.m., he noticed nosebleeds in the left nostril, came to the ER. Nose packing was done and bleeding stopped, but while sitting in the chair, he had an episode of near syncope and feeling dizziness on standing, so we were called for admission. Currently resting comfortably and hemodynamically stable. Denies any headache or blurred visions. No earache, no runny nose, no sore throat, no cough, no fever, no chills, no chest pain, no shortness of breath, no nausea. Appetite is okay. No abdominal pain. Normal bowel and bladder movements. Otherwise ambulates okay. ALLERGIES: BEE VENOM, BACTRIM. PAST MEDICAL HISTORY: As mentioned above. PAST SURGICAL HISTORY: Bilateral carpal tunnel surgery, colonoscopy, detached retina repair, bilateral thumb joint replacement, rotator cuff repair on the right side, sigmoidoscopy. MEDICATIONS: The patient is on lisinopril 20 mg p.o. daily, Flonase 2 sprays into each nostril daily, B12 1000 mg p.o. daily, fish oil daily, vitamin C 1000 mg daily, zinc 50 mg p.o. daily. FAMILY HISTORY: Significant for mother had osteoarthritis, cholesterol; brother has COPD. SOCIAL HISTORY: . Chews tobacco 1 can every 2 days. No alcohol use, no drug use. REVIEW OF SYSTEMS: As per HPI. Rest of the review of systems negative. PHYSICAL EXAMINATION: GENERAL: The patient is of moderate build, not in acute distress. VITAL SIGNS: Temperature afebrile, pulse 113, respiratory rate 24, blood pressure 151/98, oxygen 96% on room air. HEENT: Pupils equal, round, and reactive to light. Nasal packing is seen in the left nostril. Oral mucosa moist. NECK: No JVD. No neck masses. CARDIOVASCULAR: S1, S2 heard, regular rate and rhythm, no murmur, no gallop. RESPIRATORY SYSTEM: Normal AP diameter. No accessory muscle use. No wheezing, no crackles. ABDOMEN: Soft, bowel sounds present, nontender. No distention. CENTRAL NERVOUS SYSTEM: Cranial nerves II-XII grossly intact, 4/5 in all extremities sensation. EXTREMITIES: No edema, no erythema. LABORATORY DATA: WBC 11, hemoglobin 14.1, hematocrit 42.8, platelets 182. Sodium 143, potassium 3.6, chloride 113, bicarbonate 23, BUN 26, creatinine 1.22, serum glucose 207, calcium 8, total bilirubin 0.5, AST 15, ALT 23, alkaline phosphatase 54. TSH 4.3. Urinalysis, trace ketones. SARS-CoV-2 PCR negative. IMAGING DATA: Chest x-ray, no acute findings. EKG: Normal sinus rhythm with first-degree AV block at a rate of 93, no acute ST changes seen. ASSESSMENT AND PLAN: This is a 80-year-old male who presents with epistaxis and also had an episode of near syncope in the ER. 1. Epistaxis: The patient says he had an episode several years ago. It happened in the left nostril at this time and is status post nasal packing in the ER, which we will continue. The patient in the ER was started on Augmentin which will continue. Needs followup with ENT. We will monitor. 2. Near syncope: Possibly vasovagal from above. We will monitor in tele floor. Serial enzymes, echo, and carotid Doppler and PT and OT. If any concern, consult cardiology.Follow orthostatics. 3. Diet-controlled diabetes: Follow HbA1c level. Placed on insulin sliding scale. Diabetic diet. 4. Hypertension: Continue his home lisinopril . 5. Hypocalcemia. We will check the vitamin D levels. . We will check for his ionized calcium.If low replace. 6. Deep venous thrombosis prophylaxis: Sequential compression devices for now. 7. Disposition: Closely observe in tele floor. PT and OT prior to discharge. Social service to help with discharge planning. Level 1 full code. MTDD
[2021-05-03] MEDS: INSULIN ASPART 100 UNITS/ML 3 ML PEN SC SCH ×4 (09:22→21:05)
[2021-05-03] MEDS ORDERED: POTASSIUM CHLORIDE CRTAB 20 MEQ TABCR PO STA (10:37)
[2021-05-03] MEDS: lisinopril 20 MG TAB PO SCH (11:03)
[2021-05-03] MEDS ORDERED: GLUCOSE 40% GEL 15 GM TUBE PO PRN (15:15)
[2021-05-03] MEDS ORDERED: GLUCAGON FOR INJ 1 MG VIAL SQ PRN (15:15)
[2021-05-03] MEDS ORDERED: CARBOHYDRATES FOR HYPOGLYCEMIA PO PRN (15:15)
[2021-05-03] MEDS ORDERED: DEXTROSE 50% 50 ML SYRINGE IV PRN (15:15)
[2021-05-03] MEDS ORDERED: GLUCOSE 10 TABS/TUBE PO PRN (15:15)
[2021-05-03] MEDS ORDERED: amLODIPine BESYLATE 5 MG TAB PO SCH (16:45)
[2021-05-03] MEDS ORDERED: LABETALOL HCL IV 5 MG/ML 20ML IV STA ×2 (19:55→23:39)
[2021-05-03] MEDS ORDERED: ERGOCALCIFEROL 50,000 UNITS 1250 MCG CAP PO SCH (21:00)
[2021-05-03] MEDS: AMOXICILLIN/CLAVULANATE 875 MG TAB PO SCH (21:04)
[2021-05-03] MEDS: LABETALOL HCL IV 5 MG/ML 20ML IV PRN (22:15)
[2021-05-04] MEDS ORDERED: NITROGLYCERIN 2% OINTMENT 30GM TUBE ONE (00:01)
[2021-05-04] MEDS ORDERED: hydrALAZINE HCL 20 MG/ML VIAL IV ONE (01:36)
[2021-05-04] MEDS ORDERED: NITROGLYCERIN 2% OINTMENT 30GM TUBE EXT SCH ×2 (02:00)
[2021-05-04] MEDS: LABETALOL HCL IV 5 MG/ML 20ML IV PRN (05:03)
[2021-05-04 05:53] LABS: Basophils # (auto) 0.01 K/uL (0-0.2); Basophils % (auto) 0.1 %; Eosinophils # (auto) 0.03 K/uL (0-0.5); Eosinophils % (auto) 0.3 %; Hematocrit (blood only) 40.8 % (42-52); Hemoglobin 13.4 g/dL (14.0-18.0); Immature Granulocytes # (auto) 0.01 K/uL (0.00-0.02); Immature Granulocytes % (auto) 0.1 %; Lymphocytes % (auto) 17.1 %; Mean Corpuscular Hemoglobin 27.2 pg (25-34); Mean Corpuscular Hgb Conc 32.8 g/dL (32-36); Mean Corpuscular Volume 82.9 fL (80-100); Mean Platelet Volume 11.1 fL (7.4-10.4); Monocytes # (auto) 0.89 K/uL (0.11-0.59); Neutrophils # (auto) 8.27 K/uL (1.4-6.5); Neutrophils % (auto) 74.4 %; Platelet Count 164 K/uL (130-400); RDW Coefficient of Variation 13.9 % (11.5-14.5); RDW Standard Deviation 41.6 fL (36.4-46.3); Red Blood Count 4.92 M/uL (4.7-6.1); White Blood Count 11.11 K/uL (4.8-10.8)
[2021-05-04 06:21] LABS: Estimated Average Glucose 157 mg/dl; Hemoglobin A1C 7.1 % (4.5-5.6)
[2021-05-04 06:37] LABS: BUN Creatinine Ratio 30.4 (10-20); Calcium 8.2 mg/dl (8.5-10.1); Creatinine Clr Calc Pharmacy 69.5 ml/min; Est GFR (African American) 96.3 ml/min; Est GFR (Non-African American) 83.1 ml/min; Potassium 3.8 mmol/L (3.5-5.1)
--- NOTE | 2021-05-04 06:48 | Electrocardiogram Report ---
Test Reason : Blood Pressure : / mmHG Vent. Rate : 093 BPM Atrial Rate : 093 BPM P-R Int : 216 ms QRS Dur : 104 ms QT Int : 386 ms P-R-T Axes : 034 -39 056 degrees QTc Int : 479 ms Sinus rhythm with 1st degree A-V block Left axis deviation Minimal voltage criteria for LVH, may be normal variant Septal infarct (cited on or before 25-JAN-2018) Abnormal ECG When compared with ECG of 25-JAN-2018 00:26, Questionable change in initial forces of Septal leads Confirmed by August Salazar ([id number]) on 05/04/2021 6:48:29 AM Referred By: REFERRED SELF Confirmed By:August Salazar
[2021-05-04] MEDS: lisinopril 20 MG TAB PO SCH (08:16)
[2021-05-04] MEDS: AMOXICILLIN/CLAVULANATE 875 MG TAB PO SCH ×2 (08:16→17:14)
[2021-05-04] MEDS: amLODIPine BESYLATE 5 MG TAB PO SCH (08:16)
[2021-05-04] MEDS: INSULIN ASPART 100 UNITS/ML 3 ML PEN SC SCH ×4 (08:17→20:14)
--- NOTE | 2021-05-04 08:22 | Hospitalist Progress Note ---
Date of Service May 04, 2021 Assessment & Plan (1) Epistaxis: (2) Vasovagal episode: Uncontrolled hypertension Hypovitaminosis D This is a 80-year-old male who presents with epistaxis and also had an episode of near syncope in the ER. 1. Epistaxis: The patient says he had an episode several years ago. It happened in the left nostril at this time and is status post nasal packing in the ER, which we will continue. The patient in the ER was started on Augmentin which will continue. Needs followup with ENT. We will monitor. Per unfinished ER note, patient was to return to ER for packing removal in 48 to 72 hours 2. Near syncope: Possibly vasovagal from above. We will monitor in tele floor. Serial enzymes, echo, and carotid Doppler and PT and OT. Carotid Doppler unremarkable Troponin x3 negative However patient had uncontrolled hypertension overnight, started on amlodipine first and labetalol and then also Nitropaste used Discussed with cardiology further Believe patient had vasovagal episode due to painful packing Recommend Follow up out patient with cardiology for Zio monitor and echo. Continue Norvasc daily Continue Lisinopril 20 mg daily 3. Diet-controlled diabetes Current HbA1c level 7.1%. Placed on insulin sliding scale. Diabetic diet. 4. Hypertension: As above, uncontrolled Continue his home lisinopril . Added amlodipine 5. Hypocalcemia. -check the vitamin D levels - low Hypovitaminosis D - gave 50,000 units, patient should take 50,000 units q. 7 days and follow-up with PCP. -check for his ionized calcium - normal level DVT prophylaxis: Sequential compression devices for now. Disposition: Closely observe in tele floor. PT and OT prior to discharge. Social service to help with discharge planning. CODE: full code Admission and Anticipated Discharge Date Admission Date: May 03, 2021 Subjective Patient seen in follow-up of epistaxis, syncope/ vasovagal episode, uncontrolled hypertension Patient was admitted yesterday morning, seen in the ED, feeling better, denied any more dizziness however says that occasionally has dizziness at home as well Carotid ultrasound obtained, unremarkable Echocardiogram pending Yesterday had elevated blood pressure, started on amlodipine (in addition to his home lisinopril) Overnight however his blood pressure was still quite elevated and started on labetalol and Nitropaste by the tan room supervisor Currently sitting up in bed, in no acute distress, son at the bedside Per son, patient may not be Mc[place] taking medications properly, due to cost, this was also discussed with the case management Patient currently denies any chest pain, shortness of breath, dizziness, lightheadedness Review of Systems Review of Systems: All systems reviewed & are unremarkable except as noted in HPI & below Constitutional: no fever and no chills Respiratory: no cough and no dyspnea Cardiovascular: no chest pain and no palpitations Gastrointestinal: no abdominal pain, no nausea and no vomiting Physical Exam Physical Exam: GENERAL: The patient is of moderate build, not in acute distress. HEENT: Pupils equal, round, and reactive to light. Nasal packing is seen in the left nostril. Oral mucosa moist. NECK: No JVD. No neck masses. CARDIOVASCULAR: S1, S2 heard, regular rate and rhythm, no murmur, no gallop. RESPIRATORY: Normal AP diameter. No accessory muscle use. No wheezing, no crackles. ABDOMEN: Soft, bowel sounds present, nontender. No distention. NEURO: Alert oriented answering questions appropriately, no facial asymmetry, speech fluent, patient is hard of hearing, moves extremities EXTREMITIES: No edema, no erythema. Results & Data Results & Data ([facility]) Vital Signs (Past 12 Hours) Vital Signs Temp Pulse Resp BP Pulse Ox 05/04/21 06:50 36.8 C 102 H 19 115/85 98 05/04/21 04:12 37.4 C 104 H 18 152/100 H 96 05/03/21 22:54 37.3 C 100 H 21 176/125 H 95 Laboratory Results 05/04/21 05/04/21 05/04/21 Range/Units 07:01 05:28 05:28 WBC (4.8-10.8) K/uL RBC (4.7-6.1) M/uL Hgb (14.0-18.0) g/dL Hct (42-52) % MCV (80-100) fL MCH (25-34) pg MCHC (32-36) g/dL RDW Std Deviation (36.4-46.3) fL RDW Coeff of Zachary (11.5-14.5) % Plt Count (130-400) K/uL MPV (7.4-10.4) fL Immature Gran % (Auto) % Neut % (Auto) % Lymph % (Auto) % [place] % (Auto) % Eos % (Auto) % Baso % (Auto) % Neut # (Auto) (1.4-6.5) K/uL Lymph # (Auto) (1.2-3.4) K/uL [place] # (Auto) (0.11-0.59) K/uL Eos # (Auto) (0-0.5) K/uL Baso # (Auto) (0-0.2) K/uL Immature Gran # (Auto) (0.00-0.02) K/uL Sodium 140 (136-145) mmol/L Potassium 3.8 (3.5-5.1) mmol/L Chloride 112 H (98-107) mmol/L Carbon Dioxide 23 (21-32) mmol/L Anion Gap 5.0 (3-11) BUN 26 H (7-18) mg/dl Creatinine 0.86 D (0.6-1.4) mg/dl Est Cr Clr Drug Dosing 69.5 ml/min Est GFR ( Amer) 96.3 ml/min Est GFR (Non-Af Amer) 83.1 ml/min BUN/Creatinine Ratio 30.4 H (10-20) Glucose 149 H (70-99) mg/dl POC Glucose 154 H (70-99) mg/dl Estimat Average Glucose 157 mg/dl Hemoglobin A1c 7.1 H (4.5-5.6) % Calcium 8.2 L (8.5-10.1) mg/dl Ionized Calcium (1.12-1.32) mmol/L Magnesium 2.0 (1.8-2.4) mg/dl Troponin I (0-0.045) ng/ml 25-OH Vitamin D Total (30-100) ng/ml 05/04/21 05/03/21 05/03/21 Range/Units 05:28 20:45 16:20 WBC 11.11 H (4.8-10.8) K/uL RBC 4.92 (4.7-6.1) M/uL Hgb 13.4 L (14.0-18.0) g/dL Hct 40.8 L (42-52) % MCV 82.9 (80-100) fL MCH 27.2 (25-34) pg MCHC 32.8 (32-36) g/dL RDW Std Deviation 41.6 (36.4-46.3) fL RDW Coeff of Zachary 13.9 (11.5-14.5) % Plt Count 164 (130-400) K/uL MPV 11.1 H (7.4-10.4) fL Immature Gran % (Auto) 0.1 % Neut % (Auto) 74.4 % Lymph % (Auto) 17.1 % [place] % (Auto) 8.0 % Eos % (Auto) 0.3 % Baso % (Auto) 0.1 % Neut # (Auto) 8.27 H (1.4-6.5) K/uL Lymph # (Auto) 1.90 (1.2-3.4) K/uL [place] # (Auto) 0.89 H (0.11-0.59) K/uL Eos # (Auto) 0.03 (0-0.5) K/uL Baso # (Auto) 0.01 (0-0.2) K/uL Immature Gran # (Auto) 0.01 (0.00-0.02) K/uL Sodium (136-145) mmol/L Potassium (3.5-5.1) mmol/L Chloride (98-107) mmol/L Carbon Dioxide (21-32) mmol/L Anion Gap (3-11) BUN (7-18) mg/dl Creatinine (0.6-1.4) mg/dl Est Cr Clr Drug Dosing ml/min Est GFR ( Amer) ml/min Est GFR (Non-Af Amer) ml/min BUN/Creatinine Ratio (10-20) Glucose (70-99) mg/dl POC Glucose 155 H 112 H (70-99) mg/dl Estimat Average Glucose mg/dl Hemoglobin A1c (4.5-5.6) % Calcium (8.5-10.1) mg/dl Ionized Calcium (1.12-1.32) mmol/L Magnesium (1.8-2.4) mg/dl Troponin I (0-0.045) ng/ml 25-OH Vitamin D Total (30-100) ng/ml 05/03/21 05/03/21 05/03/21 Range/Units 15:07 15:07 11:43 WBC (4.8-10.8) K/uL RBC (4.7-6.1) M/uL Hgb (14.0-18.0) g/dL Hct (42-52) % MCV (80-100) fL MCH (25-34) pg MCHC (32-36) g/dL RDW Std Deviation (36.4-46.3) fL RDW Coeff of Zachary (11.5-14.5) % Plt Count (130-400) K/uL MPV (7.4-10.4) fL Immature Gran % (Auto) % Neut % (Auto) % Lymph % (Auto) % [place] % (Auto) % Eos % (Auto) % Baso % (Auto) % Neut # (Auto) (1.4-6.5) K/uL Lymph # (Auto) (1.2-3.4) K/uL [place] # (Auto) (0.11-0.59) K/uL Eos # (Auto) (0-0.5) K/uL Baso # (Auto) (0-0.2) K/uL Immature Gran # (Auto) (0.00-0.02) K/uL Sodium (136-145) mmol/L Potassium (3.5-5.1) mmol/L Chloride (98-107) mmol/L Carbon Dioxide (21-32) mmol/L Anion Gap (3-11) BUN (7-18) mg/dl Creatinine (0.6-1.4) mg/dl Est Cr Clr Drug Dosing ml/min Est GFR ( Amer) ml/min Est GFR (Non-Af Amer) ml/min BUN/Creatinine Ratio (10-20) Glucose (70-99) mg/dl POC Glucose 165 H (70-99) mg/dl Estimat Average Glucose mg/dl Hemoglobin A1c (4.5-5.6) % Calcium (8.5-10.1) mg/dl Ionized Calcium (1.12-1.32) mmol/L Magnesium 2.1 (1.8-2.4) mg/dl Troponin I < 0.015 (0-0.045) ng/ml 25-OH Vitamin D Total (30-100) ng/ml 05/03/21 05/03/21 05/03/21 Range/Units 09:07 09:01 09:01 WBC (4.8-10.8) K/uL RBC (4.7-6.1) M/uL Hgb (14.0-18.0) g/dL Hct (42-52) % MCV (80-100) fL MCH (25-34) pg MCHC (32-36) g/dL RDW Std Deviation (36.4-46.3) fL RDW Coeff of Zachary (11.5-14.5) % Plt Count (130-400) K/uL MPV (7.4-10.4) fL Immature Gran % (Auto) % Neut % (Auto) % Lymph % (Auto) % [place] % (Auto) % Eos % (Auto) % Baso % (Auto) % Neut # (Auto) (1.4-6.5) K/uL Lymph # (Auto) (1.2-3.4) K/uL [place] # (Auto) (0.11-0.59) K/uL Eos # (Auto) (0-0.5) K/uL Baso # (Auto) (0-0.2) K/uL Immature Gran # (Auto) (0.00-0.02) K/uL Sodium (136-145) mmol/L Potassium (3.5-5.1) mmol/L Chloride (98-107) mmol/L Carbon Dioxide (21-32) mmol/L Anion Gap (3-11) BUN (7-18) mg/dl Creatinine (0.6-1.4) mg/dl Est Cr Clr Drug Dosing ml/min Est GFR ( Amer) ml/min Est GFR (Non-Af Amer) ml/min BUN/Creatinine Ratio (10-20) Glucose (70-99) mg/dl POC Glucose 142 H (70-99) mg/dl Estimat Average Glucose mg/dl Hemoglobin A1c (4.5-5.6) % Calcium (8.5-10.1) mg/dl Ionized Calcium (1.12-1.32) mmol/L Magnesium (1.8-2.4) mg/dl Troponin I < 0.015 (0-0.045) ng/ml 25-OH Vitamin D Total 15.4 L (30-100) ng/ml 05/03/21 Range/Units 09:01 WBC (4.8-10.8) K/uL RBC (4.7-6.1) M/uL Hgb (14.0-18.0) g/dL Hct (42-52) % MCV (80-100) fL MCH (25-34) pg MCHC (32-36) g/dL RDW Std Deviation (36.4-46.3) fL RDW Coeff of Zachary (11.5-14.5) % Plt Count (130-400) K/uL MPV (7.4-10.4) fL Immature Gran % (Auto) % Neut % (Auto) % Lymph % (Auto) % [place] % (Auto) % Eos % (Auto) % Baso % (Auto) % Neut # (Auto) (1.4-6.5) K/uL Lymph # (Auto) (1.2-3.4) K/uL [place] # (Auto) (0.11-0.59) K/uL Eos # (Auto) (0-0.5) K/uL Baso # (Auto) (0-0.2) K/uL Immature Gran # (Auto) (0.00-0.02) K/uL Sodium (136-145) mmol/L Potassium (3.5-5.1) mmol/L Chloride (98-107) mmol/L Carbon Dioxide (21-32) mmol/L Anion Gap (3-11) BUN (7-18) mg/dl Creatinine (0.6-1.4) mg/dl Est Cr Clr Drug Dosing ml/min Est GFR ( Amer) ml/min Est GFR (Non-Af Amer) ml/min BUN/Creatinine Ratio (10-20) Glucose (70-99) mg/dl POC Glucose (70-99) mg/dl Estimat Average Glucose mg/dl Hemoglobin A1c (4.5-5.6) % Calcium (8.5-10.1) mg/dl Ionized Calcium 1.15 (1.12-1.32) mmol/L Magnesium (1.8-2.4) mg/dl Troponin I (0-0.045) ng/ml 25-OH Vitamin D Total (30-100) ng/ml Medications Administered Current Inpatient Medications Acetaminophen (Acetaminophen 325 Mg Tab) 650 mg PO Q4H PRN PRN Reason: Pain or Fever Stop: 06/02/21 08:06 Last Admin: 05/04/21 05:05 Dose: 650 mg Documented by: Amlodipine Besylate (Amlodipine Besylate 5 Mg Tab) 5 mg PO QAM [facility] Stop: 06/03/21 08:59 Amoxicillin/Clavulanate Potassium (Amoxicillin/Clavulanate 875 Mg Tab) 1 tab PO BIDM [facility]1983 Stop: 05/13/21 19:59 Last Admin: 05/03/21 21:04 Dose: 1 tab Documented by: Dextrose (Dextrose 50% 50 Ml Syringe) 25 - 50 ml IV UD PRN; Protocol PRN Reason: Hypoglycemia Protocol Stop: 06/02/21 15:14 Ergocalciferol (Ergocalciferol 50,000 Units 1250 Mcg Cap) 50,000 units PO Q7D [facility] Stop: 06/02/21 20:59 Last Admin: 05/03/21 21:04 Dose: 50,000 units Documented by: Glucagon (Glucagon For Inj 1 Mg Vial) 1 mg SQ UD PRN; Protocol PRN Reason: Hypoglycemia Protocol Stop: 06/02/21 15:14 Glucose (Glucose 40% Gel 15 Gm Tube) 15 - 30 gm PO UD PRN; Protocol PRN Reason: Hypoglycemia Protocol Stop: 06/02/21 15:14 Glucose (Glucose 10 Tabs/Tube) 4 - 8 tabs PO UD PRN; Protocol PRN Reason: Hypoglycemia Protocol Stop: 06/02/21 15:14 Insulin Aspart (Insulin Aspart 100 Units/Ml 3 Ml Pen) 0 units SC ACHS [facility]1983 Stop: 06/02/21 08:06 Last Admin: 05/03/21 21:05 Dose: 1 units Documented by: Labetalol HCl (Labetalol Hcl Iv 5 Mg/Ml 20ml) 10 mg IV Q4H PRN PRN Reason: Hypertension Stop: 06/02/21 19:55 Last Admin: 05/04/21 05:03 Dose: 10 mg Documented by: Lisinopril (Lisinopril 20 Mg Tab) 20 mg PO DAILY [facility] Stop: 06/02/21 08:59 Last Admin: 05/03/21 11:03 Dose: 20 mg Documented by: Miscellaneous (Carbohydrates For Hypoglycemia ) 15 - 30 gm PO UD PRN PRN Reason: Hypoglycemia Treatment Stop: 06/02/21 15:14 Nitroglycerin (Nitroglycerin Sl 0.4 Mg/Tab Tab) 0.4 mg SL UD PRN PRN Reason: Chest Pain Stop: 06/02/21 08:06 Nitroglycerin (Nitroglycerin 2% Ointment 30gm Tube) 1 inch EXT Q6H [place] Stop: 06/03/21 01:59 Last Admin: 05/04/21 01:49 Dose: 1 inch Documented by: Ondansetron HCl (Ondansetron Inj 2 Mg/Ml 2 Ml Vial) 4 mg IV Q6H PRN PRN Reason: Nausea Stop: 06/02/21 08:06
--- NOTE | 2021-05-04 08:24 | Cardiology Consultation ---
Date of Consultation May 04, 2021 Assessment & Plan (1) Epistaxis: (2) Near syncope: (3) HTN, goal below 140/80: (4) Sinus tachycardia: Isolated incident of Nose bleeds following regular use of nasal sprays for seasonal allergies. Has been having sinus issues since COVID 11/2020. Syncopal episode after packing of the left nasal passage which caused significant pain. Syncope likely vasovagal in nature Would recommend Orthostatic VS this am Patient was initially hypertensive over night, BP much better controlled this morning. HR in the 90-100s, asymptomatic. Receiving 10 mg IV Labetalol twice daily- would recommend transitioning to Metoprolol succinate 25 mg daily for discharge Follow up out patient with cardiology for Zio monitor and echo. Continue Norvasc 2.5 mg daily Continue Lisinopril 20 mg daily Replace electrolytes as appropriate. Supervising Physician Co-Signing Physician Notes I have seen and evaluated the patient. I have reviewed the medical record and discussed the case with Ms. Lincoln. I agree with the plan as outlined. The patient was in a great deal of pain when they first put the balloon device in his nostril to control the bleeding and most likely resulted in a vasovagal event. History of Present Illness Reason for Consultation: Syncopal episode Requesting Physician: [facility]ist group Attending Physician: Antolin Sandhu MD History of Present Illness 80 year old male presented to [facility] ED on 05/03 around 0100 for complaints of nose bleeds, Nose bleed desribed as dripping, minimal. Has been having issues with his sinuses since having Covid 11/2020. Nose was packed and bleeding stopped- patient was resting in the chair. Once bleeding stopped he had a near syncopal event after standing up from his chair- patient was then admitted. Lab work showed mild anemia with a hgb of 13.4 this morning Scr stable at 0.86. calcium mildly low at 8.2, troponin negative x2. EKG showed SR with 1st AVB. Upon entering the room, patient was alert and oriented in no apparent distress. He is feeling well and denies any cardiovascular complaints. States "i have no had any heart problems". Denies any further episodes of dizziness or syncope. Notes that as a child he has a history of signifcant nose bleeds that seemed to resolve on their own. He does occasionally get nose bleeds from the use of flonase for allergies, notes that he has been using nasal sprays recently. Patient states that when the nasal passage was packed it was extremely painful for him. Patient is active at home, [place] and continues to use the tracker and bail hay. He continues to go hunting, notes that he just has to move a little slower than he used to. Functional capacity unchanged over the last 6 months. No chest pain, shortness of breath, palpitations, dizziness, syncope or near syncope. No orthopnea, PND, or increased lower extremity edema. No fever, chills, cough, hematochezia, melena, or hemoptysis. Tele monitor reviewed: SR to low ST over night and into this morning, occasional PACs with a rate between 90-100s. Medical Illnesses: 1. Diabetes. 2. Hypertension. 3. Hyperlipidemia. 4. Erectile dysfunction. 5. Presbycusis. 6. Cervical disc degeneration. 7. Osteoarthritis. 8. Negative exercise stress test 06/2012 for abnormal EKG suggesting inferior infarct, patient was asymptomatic. 9. Remote history of Nosebleeds as a child Allergies Allergy/AdvReac Type Severity Reaction Status Date / Time bee venom protein (honey bee) Allergy Mild ANAPHYLAXIS Verified 05/03/21 07:00 sulfamethoxazole Allergy Rash Verified 05/03/21 07:00 [From Bactrim] trimethoprim [From Bactrim] Allergy Rash Verified 05/03/21 07:00 Home Medications Medication Instructions Recorded Confirmed Type cinnamon bark [Cinnamon] 1,000 mg PO BID 02/17/19 05/03/21 History lisinopril 20 mg PO DAILY 02/17/19 05/03/21 History amoxicillin-pot clavulanate 1 tab PO BID #6 tab 05/03/21 Rx [Augmentin] Patient History Medical History (Updated 05/04/21 @ 10:01 by TULIO Camarena) Diabetes mellitus, type 2 DIET AND SUPPLEMENT FOR TX. Hypertension Transient ischemic attack (TIA) 2009, NO RESIDUAL EFFECT. Surgical History History of cataract extraction with lens replacement History of colonoscopy History of herniorrhaphy History of repair of rotator cuff B/L History of surgery 2009, [facility], SURGERY FOR TRIGEMINAL NEURALGIA Social History Smoking Status: Former smoker Second Hand Exposure: No; Hx Alcohol Use: No Hx Substance Use: No Preferred Language: [place] Communication Ability: Effective Candy Spreader Helper Required: No Beliefs That Will Affect Care: None Current Living Situation: Spouse Other Information That Helps Us Care for You: No Feels Safe at Home: Yes Safety Concerns: Feels Safe At This Time Assistive Devices: None Review of Systems Review of Systems: All systems reviewed & are unremarkable except as noted in HPI & below Physical Exam Physical Exam: General: No acute distress. A+Ox3. HEENT: Normocephalic. Atraumatic. PERRL. EOMI. Conjunctiva and sclera clear. NECK: No carotid bruits. No JVD. Carotid upstrokes are brisk. Heart: RRR. S1 and S2 noted without murmur, rubs, gallops. PMI non displaced. Lungs: Clear to auscultation. No wheezes, rhonchi, rales. Abdomen: Normal bowel sounds. Soft. Nontender. No masses or organomegaly. No abdominal bruits. Extremities: No edema. No clubbing or cyanosis. Pulses: radial=2/4, posterior tibial=2/4, dorsalis pedis = 2/4. NEURO: No focal deficits. PSYCH: Normal. Results & Data ([facility]) Vital Signs (Past 12 Hours) Vital Signs Temp Pulse Resp BP Pulse Ox 05/04/21 06:50 36.8 C 102 H 19 115/85 98 05/04/21 04:12 37.4 C 104 H 18 152/100 H 96 05/03/21 22:54 37.3 C 100 H 21 176/125 H 95
[2021-05-04] MEDS: METOPROLOL SUCC 25MG EXT REL TAB PO SCH (11:24)
[2021-05-05] MEDS ORDERED: LORazepam 0.5 MG TAB ONE (00:38)
[2021-05-05] MEDS: LORazepam 0.5 MG TAB PO STA ×2 (00:39→00:43)
[2021-05-05] MEDS ORDERED: HALOPERIDOL LACTATE 5 MG/ML 1 ML VIAL ONE (02:13)
[2021-05-05] MEDS ORDERED: HALOPERIDOL LACTATE 5 MG/ML 1 ML VIAL IM STA ×3 (02:15→04:40)
[2021-05-05] MEDS: INSULIN ASPART 100 UNITS/ML 3 ML PEN SC SCH ×2 (07:00→12:03)
--- NOTE | 2021-05-05 07:48 | Hospitalist Progress Note ---
Date of Service May 05, 2021 Assessment & Plan Admission and Anticipated Discharge Date Admission Date: May 04, 2021 Subjective Patient was given ativan 0.5mg last night for insomnia and restlessness later he became agitated and one dose of im haldol 1mg given. But around 3am arjun wallace was called as patient was agitated and combative and trying to hit the nursing staff. Patient calmed down and seemed to go to sleep after another 2mg im haldol. Recevied another dose of 1mg im haldol as he was waking up and getting agitated again. Around 5pm again arjun wallace was called as patient again became combative. Patient denies any alcoholism. Per H and P also no hx of alcoholism. Another 2mg im haldol given and placed on soft restraints as patient was getting aggressive.. Seems calmer after sometime. Tried to call but was not picking up the phone.Ekg done no prolongation of qtc from previous. Continue to Monitor. Results & Data Results & Data ([facility]) Vital Signs (Past 12 Hours) Vital Signs Temp Pulse Pulse Pulse Resp BP BP 05/05/21 07:01 37.0 C 103 H 16 142/100 H 05/04/21 23:56 98 H 05/04/21 23:45 37.1 C 97 H 18 169/119 H Pulse Ox 05/05/21 07:01 96 05/04/21 23:56 05/04/21 23:45 94
[2021-05-05] MEDS: lisinopril 20 MG TAB PO SCH (08:42)
[2021-05-05] MEDS: AMOXICILLIN/CLAVULANATE 875 MG TAB PO SCH (08:42)
[2021-05-05] MEDS: METOPROLOL SUCC 25MG EXT REL TAB PO SCH (08:42)
--- NOTE | 2021-05-05 09:12 | Hospitalist Progress Note ---
Date of Service May 05, 2021 Assessment & Plan (1) Epistaxis: (2) Vasovagal episode: Uncontrolled hypertension Hypovitaminosis D This is a 80-year-old male who presents with epistaxis and also had an episode of near syncope in the ER. 1. Epistaxis: The patient says he had an episode several years ago. It happened in the left nostril at this time and is status post nasal packing in the ER, which we will continue. The patient in the ER was started on Augmentin which will continue. Discussed with ENT, Dr. Cantu, she plans to see the patient on May 07 for nasal packing removal. Patient should use Afrin and saline nasal sprays, and continue Augmentin in the meantime 2. Near syncope: Likely vasovagal from above. Carotid Doppler unremarkable Troponin x3 negative However patient had uncontrolled hypertension overnight, started on amlodipine first and labetalol and then also Nitropaste used Discussed with cardiology further Believe patient had vasovagal episode due to painful packing Recommend Follow up out patient with cardiology for Zio monitor and echo. Continue Norvasc 5 mg daily Continue Lisinopril 20 mg daily and metoprolol succinate 50 mg daily. 3. Diet-controlled diabetes Current HbA1c level 7.1%. Placed on insulin sliding scale. Diabetic diet. 4. Hypertension: As above, uncontrolled Continue his home lisinopril . Added amlodipine 5. Hypocalcemia. -check the vitamin D levels - low Hypovitaminosis D - gave 50,000 units, patient should take 50,000 units q. 7 days and follow-up with PCP. -check for his ionized calcium - normal level DVT prophylaxis: Sequential compression devices for now. Disposition: Closely observe in tele floor. PT and OT prior to discharge. Social service to help with discharge planning. CODE: full code Admission and Anticipated Discharge Date Admission Date: May 04, 2021 Subjective Patient seen in follow-up of epistaxis, syncope/ vasovagal episode, uncontrolled hypertension Overnight patient became agitated, and was code orozco, required Haldol several times Currently patient is feeling better, however still little confused, much better with his family at the bedside Discussed with the family, apparently patient had episode like this last time when he was admitted as well. Family feels that he will be safe at home with them instead of staying in the hospital where he will get more confused, patient's son will be present at home to help. Patient himself has no complaints, denies any chest pain, shortness of breath, fevers chills, dizziness. Discussed with ENT doctor, Dr. Cantu, who is planning to see him on Friday for nasal packing removal. Review of Systems Review of Systems: All systems reviewed & are unremarkable except as noted in HPI & below Constitutional: no fever and no chills Respiratory: no cough and no dyspnea Cardiovascular: no chest pain and no palpitations Gastrointestinal: no abdominal pain, no nausea and no vomiting Physical Exam Physical Exam: GENERAL: The patient is of moderate build, not in acute distress. HEENT: Pupils equal, round, and reactive to light. Nasal packing is seen in the left nostril. Oral mucosa moist. NECK: No JVD. No neck masses. CARDIOVASCULAR: S1, S2 heard, regular rate and rhythm, no murmur, no gallop. RESPIRATORY: Normal AP diameter. No accessory muscle use. No wheezing, no crackles. ABDOMEN: Soft, bowel sounds present, nontender. No distention. NEURO: Awake and alert, answering most questions appropriately, however still little confused. No facial asymmetry, speech fluent, patient is hard of hearing, moves extremities EXTREMITIES: No edema, no erythema. Results & Data Results & Data ([facility]) Vital Signs (Past 12 Hours) Vital Signs Temp Pulse Pulse Pulse Resp BP BP 05/05/21 07:01 37.0 C 103 H 16 142/100 H 05/04/21 23:56 98 H 05/04/21 23:45 37.1 C 97 H 18 169/119 H Pulse Ox 05/05/21 07:01 96 05/04/21 23:56 05/04/21 23:45 94 Laboratory Results 05/05/21 05/05/21 05/05/21 Range/Units 11:29 09:43 09:43 WBC 9.47 (4.8-10.8) K/uL RBC 4.62 L (4.7-6.1) M/uL Hgb 12.6 L (14.0-18.0) g/dL Hct 38.0 L (42-52) % MCV 82.3 (80-100) fL MCH 27.3 (25-34) pg MCHC 33.2 (32-36) g/dL RDW Std Deviation 41.4 (36.4-46.3) fL RDW Coeff of Zachary 13.9 (11.5-14.5) % Plt Count 157 (130-400) K/uL MPV 10.4 (7.4-10.4) fL Sodium 138 (136-145) mmol/L Potassium 3.9 (3.5-5.1) mmol/L Chloride 107 (98-107) mmol/L Carbon Dioxide 25 (21-32) mmol/L Anion Gap 6.0 (3-11) BUN 19 H (7-18) mg/dl Creatinine 0.89 (0.6-1.4) mg/dl Est Cr Clr Drug Dosing 67.2 ml/min Est GFR ( Amer) 94.9 ml/min Est GFR (Non-Af Amer) 81.9 ml/min BUN/Creatinine Ratio 21.1 H (10-20) Glucose 182 H (70-99) mg/dl POC Glucose 127 H (70-99) mg/dl Calcium 9.1 (8.5-10.1) mg/dl Phosphorus 2.7 (2.5-4.9) mg/dl Magnesium 2.1 (1.8-2.4) mg/dl 05/05/21 05/04/21 05/04/21 Range/Units 07:08 20:13 16:16 WBC (4.8-10.8) K/uL RBC (4.7-6.1) M/uL Hgb (14.0-18.0) g/dL Hct (42-52) % MCV (80-100) fL MCH (25-34) pg MCHC (32-36) g/dL RDW Std Deviation (36.4-46.3) fL RDW Coeff of Zachary (11.5-14.5) % Plt Count (130-400) K/uL MPV (7.4-10.4) fL Sodium (136-145) mmol/L Potassium (3.5-5.1) mmol/L Chloride (98-107) mmol/L Carbon Dioxide (21-32) mmol/L Anion Gap (3-11) BUN (7-18) mg/dl Creatinine (0.6-1.4) mg/dl Est Cr Clr Drug Dosing ml/min Est GFR ( Amer) ml/min Est GFR (Non-Af Amer) ml/min BUN/Creatinine Ratio (10-20) Glucose (70-99) mg/dl POC Glucose 140 H 148 H 120 H (70-99) mg/dl Calcium (8.5-10.1) mg/dl Phosphorus (2.5-4.9) mg/dl Magnesium (1.8-2.4) mg/dl Medications Administered Current Inpatient Medications Acetaminophen (Acetaminophen 325 Mg Tab) 650 mg PO Q4H PRN PRN Reason: Pain or Fever Stop: 06/02/21 08:06 Last Admin: 05/04/21 05:05 Dose: 650 mg Documented by: Amlodipine Besylate (Amlodipine Besylate 5 Mg Tab) 5 mg PO QAM COUNTS INCLUDE 234 BEDS AT THE [facility] Stop: 06/03/21 08:59 Last Admin: 05/05/21 09:16 Dose: 5 mg Documented by: Amoxicillin/Clavulanate Potassium (Amoxicillin/Clavulanate 875 Mg Tab) 1 tab PO BIDM COUNTS INCLUDE 234 BEDS AT THE [facility] Stop: 05/13/21 19:59 Last Admin: 05/05/21 08:42 Dose: 1 tab Documented by: Dextrose (Dextrose 50% 50 Ml Syringe) 25 - 50 ml IV UD PRN; Protocol PRN Reason: Hypoglycemia Protocol Stop: 06/02/21 15:14 Ergocalciferol (Ergocalciferol 50,000 Units 1250 Mcg Cap) 50,000 units PO Q7D COUNTS INCLUDE 234 BEDS AT THE [facility] Stop: 06/02/21 20:59 Last Admin: 05/03/21 21:04 Dose: 50,000 units Documented by: Glucagon (Glucagon For Inj 1 Mg Vial) 1 mg SQ UD PRN; Protocol PRN Reason: Hypoglycemia Protocol Stop: 06/02/21 15:14 Glucose (Glucose 40% Gel 15 Gm Tube) 15 - 30 gm PO UD PRN; Protocol PRN Reason: Hypoglycemia Protocol Stop: 06/02/21 15:14 Glucose (Glucose 10 Tabs/Tube) 4 - 8 tabs PO UD PRN; Protocol PRN Reason: Hypoglycemia Protocol Stop: 06/02/21 15:14 Insulin Aspart (Insulin Aspart 100 Units/Ml 3 Ml Pen) 0 units SC ACHS COUNTS INCLUDE 234 BEDS AT THE [facility] Stop: 06/02/21 08:06 Last Admin: 05/05/21 12:03 Dose: Not Given Documented by: Lisinopril (Lisinopril 20 Mg Tab) 20 mg PO DAILY COUNTS INCLUDE 234 BEDS AT THE [facility] Stop: 06/02/21 08:59 Last Admin: 05/05/21 08:42 Dose: 20 mg Documented by: Metoprolol Succinate (Metoprolol Succ 50mg Ext Rel Tab) 50 mg PO QAM COUNTS INCLUDE 234 BEDS AT THE [facility] Stop: 06/05/21 08:59 Miscellaneous (Carbohydrates For Hypoglycemia ) 15 - 30 gm PO UD PRN PRN Reason: Hypoglycemia Treatment Stop: 06/02/21 15:14 Nitroglycerin (Nitroglycerin Sl 0.4 Mg/Tab Tab) 0.4 mg SL UD PRN PRN Reason: Chest Pain Stop: 06/02/21 08:06 Nitroglycerin (Nitroglycerin 2% Ointment 30gm Tube) 1 inch EXT Q6H COUNTS INCLUDE 234 BEDS AT THE [facility] Stop: 06/03/21 01:59 Last Admin: 05/04/21 01:49 Dose: 1 inch Documented by: Ondansetron HCl (Ondansetron Inj 2 Mg/Ml 2 Ml Vial) 4 mg IV Q6H PRN PRN Reason: Nausea Stop: 06/02/21 08:06
[2021-05-05] MEDS: amLODIPine BESYLATE 5 MG TAB PO SCH (09:16)
[2021-05-05 09:54] LABS: Hemoglobin 12.6 g/dL (14.0-18.0); Mean Corpuscular Hemoglobin 27.3 pg (25-34); Mean Corpuscular Hgb Conc 33.2 g/dL (32-36); Mean Corpuscular Volume 82.3 fL (80-100); Mean Platelet Volume 10.4 fL (7.4-10.4); Platelet Count 157 K/uL (130-400); RDW Coefficient of Variation 13.9 % (11.5-14.5); RDW Standard Deviation 41.4 fL (36.4-46.3); Red Blood Count 4.62 M/uL (4.7-6.1); White Blood Count 9.47 K/uL (4.8-10.8)
[2021-05-05 10:12] LABS: BUN Creatinine Ratio 21.1 (10-20); Calcium 9.1 mg/dl (8.5-10.1); Creatinine Clr Calc Pharmacy 67.2 ml/min; Est GFR (African American) 94.9 ml/min; Est GFR (Non-African American) 81.9 ml/min; Magnesium 2.1 mg/dl (1.8-2.4); Phosphorus 2.7 mg/dl (2.5-4.9); Potassium 3.9 mmol/L (3.5-5.1)
[2021-05-05] MEDS ORDERED: METOPROLOL SUCC 25MG EXT REL TAB PO ONE (12:47)
--- NOTE | 2021-05-05 12:47 | Cardiology Progress Note ---
Date of Service May 05, 2021 Assessment & Plan (1) Epistaxis: (2) Near syncope: Likely vasovagal event in association with nasal packing (3) HTN, goal below 140/80: Blood pressure still elevated would increase metoprolol succinate to 50 mg every morning give additional 25 mg dose today. Blood pressure in part being driven up by current event. Continue lisinopril and amlodipine (4) Sinus tachycardia: Admission and Anticipated Discharge Date Admission Date: May 04, 2021 Subjective Patient was seen and examined, chart, medications, telemetry reviewed. Clinical course over prior evening noted with worsening agitation. Patient more alert this morning though still disoriented. Heart rate and blood pressure trending higher. Nasal packing still in place Physical Exam Constitutional: WD/WN, vitals as above Eyes: PERRL, conjunctivae normal, anicteric sclerae ENMT: Nose: + epistaxis (Nasal packing in place) Neck: trachea midline, no thyromegaly Respiratory: normal respiratory effort, lungs clear to auscultation Cardiovascular: Rate/Rhythm: regular rate and regular rhythm Heart Sounds: normal S1, normal S2 and + murmur (Grade 1/6 systolic, no diastolic); no gallop Palpation: normal PMI Vessels: normal carotid upstroke and radial pulses present; no JVD and no carotid bruit Extremities: no edema Gastrointestinal (Abdomen): normal bowel sounds, soft, nontender, no hepatosplenomegaly Musculoskeletal: no cyanosis or clubbing, extremities motor strength 5/5 Skin: no rashes, warm and dry Neurologic: PERRL, EOMI, accommodation nl, no face palsy, no dysarthria Psychiatric: A+Ox3, euthymic affect Results & Data ([facility]) Vital Signs (Past 12 Hours) Vital Signs Temp Pulse Resp BP Pulse Ox 05/05/21 11:11 36.8 C 94 H 16 157/106 H 96 05/05/21 07:01 37.0 C 103 H 16 142/100 H 96 Laboratory Results Laboratory Results - last 24 hr 05/04/21 05/04/21 05/05/21 16:16 20:13 07:08 WBC RBC Hgb Hct MCV MCH MCHC RDW Std Deviation RDW Coeff of Zachary Plt Count MPV Sodium Potassium Chloride Carbon Dioxide Anion Gap BUN Creatinine Est Cr Clr Drug Dosing Est GFR ( Amer) Est GFR (Non-Af Amer) BUN/Creatinine Ratio Glucose POC Glucose 120 H 148 H 140 H Calcium Phosphorus Magnesium 05/05/21 05/05/21 05/05/21 09:43 09:43 11:29 WBC 9.47 RBC 4.62 L Hgb 12.6 L Hct 38.0 L MCV 82.3 MCH 27.3 MCHC 33.2 RDW Std Deviation 41.4 RDW Coeff of Zachary 13.9 Plt Count 157 MPV 10.4 Sodium 138 Potassium 3.9 Chloride 107 Carbon Dioxide 25 Anion Gap 6.0 BUN 19 H Creatinine 0.89 Est Cr Clr Drug Dosing 67.2 Est GFR ( Amer) 94.9 Est GFR (Non-Af Amer) 81.9 BUN/Creatinine Ratio 21.1 H Glucose 182 H POC Glucose 127 H Calcium 9.1 Phosphorus 2.7 Magnesium 2.1
--- NOTE | 2021-05-05 16:14 | Discharge Summary ---
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 Around 1:00 a.m., he noticed nosebleeds in the left nostril, came to the ER. Nose packing was done and bleeding stopped, but while sitting in the chair, he had an episode of near syncope and feeling dizziness on standing, so we were called for admission. Currently resting comfortably and hemodynamically stable. Denies any headache or blurred visions. No earache, no runny nose, no sore throat, no cough, no fever, no chills, no chest pain, no shortness of breath, no nausea. Appetite is okay. No abdominal pain. Normal bowel and bladder movements. Otherwise ambulates okay. Admission Exam Per Admitting Provider GENERAL: The patient is of moderate build, not in acute distress. VITAL SIGNS: Temperature afebrile, pulse 113, respiratory rate 24, blood pressure 151/98, oxygen 96% on room air. HEENT: Pupils equal, round, and reactive to light. Nasal packing is seen in the left nostril. Oral mucosa moist. NECK: No JVD. No neck masses. CARDIOVASCULAR: S1, S2 heard, regular rate and rhythm, no murmur, no gallop. RESPIRATORY SYSTEM: Normal AP diameter. No accessory muscle use. No wheezing, no crackles. ABDOMEN: Soft, bowel sounds present, nontender. No distention. CENTRAL NERVOUS SYSTEM: Cranial nerves II-XII grossly intact, 4/5 in all extremities sensation. EXTREMITIES: No edema, no erythema. Principal Diagnosis Epistaxis Uncontrolled hypertension Discharge Exam GENERAL: The patient is of moderate build, not in acute distress. HEENT: Pupils equal, round, and reactive to light. Nasal packing is seen in the left nostril. Oral mucosa moist. NECK: No JVD. No neck masses. CARDIOVASCULAR: S1, S2 heard, regular rate and rhythm, no murmur, no gallop. RESPIRATORY: Normal AP diameter. No accessory muscle use. No wheezing, no crackles. ABDOMEN: Soft, bowel sounds present, nontender. No distention. NEURO: Awake and alert, answering most questions appropriately, however still little confused. No facial asymmetry, speech fluent, patient is hard of hearing, moves extremities EXTREMITIES: No edema, no erythema. Discharge Data Allergies Allergy/AdvReac Type Severity Reaction Status Date / Time bee venom protein (honey bee) Allergy Mild ANAPHYLAXIS Verified 05/03/21 07:00 sulfamethoxazole Allergy Rash Verified 05/03/21 07:00 [From Bactrim] trimethoprim [From Bactrim] Allergy Rash Verified 05/03/21 07:00 Consultations 05/03/21 05:15 ED Decision to Admit Stat 05/04/21 07:11 Consult Cardiology Routine Ordered Studies 05/03/21 08:07 US carotid doppler BI Routine IMPRESSION: No hemodynamically significant stenosis seen within the bilateral common or internal carotid arteries. Hospital Course (1) Epistaxis: (2) Vasovagal episode: Uncontrolled hypertension Hypovitaminosis D This is a 80-year-old male who presents with epistaxis and also had an episode of near syncope in the ER. 1. Epistaxis: The patient says he had an episode several years ago. It happened in the left nostril at this time and is status post nasal packing in the ER, which we will continue. The patient in the ER was started on Augmentin which will continue. Discussed with ENT, Dr. Cantu, she plans to see the patient on Friday, May 07 for nasal packing removal. Patient should use Afrin and saline nasal sprays, and continue Augmentin in the meantime 2. Near syncope: Likely vasovagal from above. Carotid Doppler unremarkable Troponin x3 negative However patient had uncontrolled hypertension overnight, started on amlodipine first and labetalol and then also Nitropaste used Discussed with cardiology further Believe patient had vasovagal episode due to painful packing Recommend Follow up out patient with cardiology for Zio monitor and echo. Continue Norvasc 5 mg daily Continue Lisinopril 20 mg daily and metoprolol succinate 50 mg daily. 3. Diet-controlled diabetes Current HbA1c level 7.1%. Placed on insulin sliding scale. Diabetic diet. 4. Hypertension: As above, uncontrolled Continue his home lisinopril . Added amlodipine 5. Hypocalcemia. -check the vitamin D levels - low Hypovitaminosis D - gave 50,000 units, patient should take 50,000 units q. 7 days and follow-up with PCP. -check for his ionized calcium - normal level Disposition: Patient to be discharged home, follow-up on May 07 with ENT, and PCP on May 09 Total Time Total Time Spent Total Time Spent (In Minutes): 45 Total Time Includes: Examination of the Patient, Discharge Planning, Medication Reconciliation and Communication With Other Providers Discharge Plan Discharge Items Patient Disposition: Home - Self-Care Reason For Visit: NOSE BLEED Discharge Diagnosis: Epistaxis Uncontrolled hypertension Condition on Discharge: Good Activity: Per Instructions section Non-emergency contact: Primary Care Provider and Specialist Call non-emergency contact if: you have any medication questions and your symptoms worsen Follow-up/Referrals: Sourav Harrington, [Primary Care Provider] - (Date & Time 05/09/2021 11:20 AM Provider Carmen Block PA-C Department [facility] ) Diet: Heart Healthy Addtl Attending Provider Instructions: Follow-up with your primary care doctor on May 09. The appointment was already scheduled for you. On May 07, you will be contacted by ENT office, Dr. Cantu. She is planning to see you on Friday to remove nasal packing. In the meantime you will need to use nasal spray Afrin and saline 3 times a day, where your nasal packing is. You should also continue taking your antibiotic Augmentin, the prescription was already sent to you by emergency room physician. We have adjusted your blood pressure medications. Continue taking your lisinopril. In addition take metoprolol and amlodipine daily as prescribed. Recommend to monitor blood pressure at home and keep a log of these numbers. Please provide your health care providers with these numbers at your next appointment. Your vitamin D was also low, you should take 50,000 unit capsule once a week. You received first dose yesterday, May 04, here in the hospital. You will likely also follow-up with cardiology to be checked for any abnormal heart rhythms, you will be contacted about the appointment. Pending Studies at Discharge: No Stand-Alone Forms: [employer], Smoking Cessation Medications and DC Order Prescriptions: New amoxicillin-pot clavulanate [Augmentin] 875-125 mg tablet 1 tab PO BID Qty: 6 RF: 0 amlodipine [Norvasc] 5 mg Tablet 5 mg PO QAM Qty: 30 RF: 0 metoprolol succinate 50 mg Tablet Extended Release 24 Hr 50 mg PO QAM Qty: 30 RF: 0 ergocalciferol (vitamin D2) 1,250 mcg (50,000 unit) Capsule 50,000 unit PO Q7D Qty: 5 RF: 0 oxymetazoline [Afrin (oxymetazoline)] 0.05 % spray,non-aerosol 2 spray intranasal TID 3 Days RF: 0 sodium chloride [Saline Nasal] 0.65 % aerosol,spray 1 spray intranasal TID Qty: 15 RF: 0 Continued lisinopril 20 mg Tablet 20 mg PO DAILY RF: 0 cinnamon bark [Cinnamon] 500 mg Capsule 1,000 mg PO BID RF: 0 Discharge Orders: Discharge Order (Routine); Ordered 05/05/21 Ordered By: Antolin Vaz/Other Patient Handouts: High Blood Sugar (Hyperglycemia), Managing Type 2 Diabetes, A1C Admission Data Admit Date/Time: 05/04/21 08:37 Attending Provider: Antolin Sandhu Admit Provider: Mal Johnson Primary Care Provider: Sourav Harrington Other Providers: Mal Johnson ; Lynn Tolliver ; Yohan Ku
[2021-05-06] MEDS ORDERED: METOPROLOL SUCC 50MG EXT REL TAB PO SCH (09:00)
== END 2021-05-05 16:28 | disposition home or self-care (01) | DRG 312 ==
LOC: EDINP 02:35 → ED 02:35 → SUATTDRO 06:05 → 2E 06:30

== ENCOUNTER 2023-01-14 07:16 | Inpatient (IN) ==
[2023-01-14] MEDS ORDERED: MECLIZINE HCL 25 MG TAB PO STA (07:29)
[2023-01-14 07:44] LABS: Basophils # (auto) 0.04 K/uL (0-0.2); Basophils % (auto) 0.3 %; Eosinophils # (auto) 0.01 K/uL (0-0.50); Eosinophils % (auto) 0.1 %; Hematocrit (blood only) 45.1 % (42.0-52.0); Hemoglobin 15.2 g/dl (14.0-18.0); Immature Granulocytes # (auto) 0.07 K/uL (0.01-0.20); Immature Granulocytes % (auto) 0.6 %; Lymphocytes # (auto) 0.82 K/uL (1.2-3.4); Lymphocytes % (auto) 6.5 %; Mean Corpuscular Hemoglobin 27.6 pg (25.0-34.0); Mean Corpuscular Hgb Conc 33.7 g/dL (32.0-36.0); Mean Platelet Volume 10.9 fL (9.4-12.4); Monocytes # (auto) 0.72 K/uL (0.11-0.59); Monocytes % (auto) 5.7 %; Neutrophils % (auto) 86.8 %; Platelet Count 174 K/uL (130-400); RDW Coefficient of Variation 13.2 % (11.5-14.5); White Blood Count 12.56 K/ul (4.8-10.8)
[2023-01-14] MEDS ORDERED: ACETAMINOPHEN 1,000 MG/100 ML VIAL IV STA (07:50)
[2023-01-14 08:04] LABS: Albumin Globulin Ratio 1.5 (0.9-2); Albumin Level 4.4 gm/dl (3.4-5.0); BUN Creatinine Ratio 17.4 (10-20); Calcium 9.5 mg/dl (8.5-10.1); Creatinine Clr Calc Pharmacy 51.5 ml/min; Est GFR (African American) 69.3 ml/min; Est GFR (Non-African American) 59.8 ml/min; Globulin 2.9 gm/dl (2.5-4.0); Magnesium 1.8 mg/dl (1.7-2.4); Total Protein 7.3 gm/dl (6.0-8.3)
[2023-01-14 08:08] LABS: Troponin I High Sensitivity 22.1 pg/ml (0-20)
--- NOTE | 2023-01-14 08:41 | XRay Report ---
XR chest 1V portable CLINICAL HISTORY: weakness COMPARISON STUDY: Chest radiograph May 03, 2021. FINDINGS: Old left clavicular fracture is incidentally noted. Lung volumes are diminished. This is un changed. There is no pneumothorax or pleural effusion. Cardiomediastinal silhouette is stable. There has been no significant change in appearance of the chest. IMPRESSION: No acute cardiopulmonary findings. ACT 112: Negative or not required by law. Electronically signed by: Roverto Koch M.D. 01/14/2023 8:39 AM
--- NOTE | 2023-01-14 08:49 | CT Scan Report ---
CT OF THE HEAD WITHOUT CONTRAST CLINICAL HISTORY: Dizzy, fall COMPARISON STUDY: Head CT May 18, 2014. CT DOSE: 614.27 mGy.cm TECHNIQUE: Helical axial images of the head were obtained without IV contrast. Automated exposure con trol was utilized for the study. A dose lowering technique was utilized adhering to the principles o f ALARA. FINDINGS: No acute intracranial hemorrhage, midline shift or mass effect is present. There is promine nce of the extra-axial spaces. This is likely due to atrophy. Basal cisterns are patent. Ventricular system is unremarkable. Left occipital craniectomy is noted with metallic plate. There are postoperat joan findings within the posterior fossa which are unchanged. There are no findings to suggest acute d ural sinus thrombosis or acute territorial infarct. Nasal bone deformities are likely chronic. No acu te calvarial fracture is present. Minimal sinus mucosal thickening. IMPRESSION: 1. No acute intracranial findings. 2. No acute calvarial fracture. 3. Stable postoperative findings. ACT 112: Negative or not required by law. Electronically signed by: Roverto Koch M.D. 01/14/2023 8:47 AM
[2023-01-14 08:51] LABS: Influenza A virus by PCR Negative (Neg); Influenza B virus by PCR Negative (Neg); RSV by PCR Negative (Neg)
[2023-01-14 08:58] LABS: SARS CoV2 RNA(COVID-19) Ceph POSITIVE (Negative)
[2023-01-14] MEDS ORDERED: METOPROLOL SUCC 50MG EXT REL TAB PO STA (09:05)
[2023-01-14] MEDS ORDERED: amLODIPine BESYLATE 5 MG TAB PO ONE (09:05)
[2023-01-14] MEDS ORDERED: lisinopril 20 MG TAB PO STA (09:05)
--- NOTE | 2023-01-14 10:01 | Emergency Department Note ---
Impression & Plan Diabetes, Vertigo ED Provider Note CHIEF COMPLAINT: Altered mental status, falls, unable to get up HISTORY OF PRESENT ILLNESS: This 82-year-old male patient with history of diabetes, sinus tachycardia, vasovagal episodes presents to the emergency department with weakness over the last 24 hours. He states he is very dizzy when he changes positions or tries to stand. He did fall several times overnight, although he does not quite remember it that way. His son is at the bedside and states he was found outside of the house, locked out at 1 AM. His other son heard the banging on the door and was able to get him inside. At that point the patient had already gotten himself dressed and made a pot of coffee, thinking it was morning. He was found with 1 shoe on. By the time the second son arrived at the home, he was unable to get up off of the couch. In retrospect they note the patient has had some upper respiratory symptoms for the last several days and a dry cough. He has not had any notable fevers or shortness of breath. He has been with some periodic confusion. REVIEW OF SYSTEMS: A review of systems was performed with positives and pertinent negatives listed in the history of present illness. 10 systems were reviewed and are otherwise negative. ALLERGIES: see below MEDICATIONS: see below PMH: see below SOCIAL HISTORY: see below DDx: Infection, dehydration, metabolic abnormality, hypo/hyperglycemia, electrolyte disturbance, anemia, hypoxia, cardiac sources, intracerebral event, toxicologic, neurologic, as well as other pathologies. PHYSICAL EXAM: Vital signs reviewed. General: Chronically ill-appearing 82-year-old male, in no significant distress. HEENT: No scleral icterus, PERRLA, neck supple. Atraumatic. Cardiovascular: Regular but tachycardic, no extra sounds Pulmonary: Clear to auscultation bilaterally, normal work of breathing. Abdomen: Soft, nontender, nondistended, positive bowel sounds. Musculoskeletal: Atraumatic, no peripheral edema. Neurologic: Patient awake alert and oriented x 3, speech is clear. Patient is pleasantly confused to events preceding the visit. Skin: Warm, dry, no rash EMERGENCY DEPARTMENT COURSE/MDM: This patient was evaluated and appeared to be in no significant distress. IV access was obtained and laboratory work was drawn. Patient was placed on campus monitor and noted to be in a sinus tachycardia. External medical records were reviewed. Patient stated he took his blood pressure medicine this morning but his son was uncertain if that was true. CT imaging of the head was performed and is negative for acute abnormality. Patient did complain of pain in several locations including the left anterior chest wall at 22. Chest x-ray reveals no focal lung consolidation or failure. Troponin was negative x1. Patient's case was discussed with the hospitalist service for further management, patient was aware of the plan and agreed. MONITORING: An order for cardiac monitoring was placed and the patient is noted to be in a sinus tachycardia at 108 beats per minute. RADIOLOGY: Chest x-ray to my interpretation reveals no evidence of focal lung consolidation or failure to my interpretation EKG: Sinus tachycardia with PACs at 108 bpm. Left axis deviation. Nonspecific intraventricular conduction delay. Possible previous lateral infarct, possible previous inferior infarct. No significant change from previous dated May 05, 2021 DISPOSITION: Admit Past Med/Surg History Medical History Diabetes mellitus, type 2 DIET AND SUPPLEMENT FOR TX. Hypertension Transient ischemic attack (TIA) 2009, NO RESIDUAL EFFECT. Surgical History History of cataract extraction with lens replacement History of colonoscopy History of herniorrhaphy History of repair of rotator cuff B/L History of surgery 2009, [facility], SURGERY FOR TRIGEMINAL NEURALGIA Family History Other Hypertension No family history of adverse response to anesthesia No family history of bleeding disorder Stroke Social History Smoking Status: Never smoker Tobacco Type: Smokeless Tobacco (Dip or Chew) Second Hand Exposure: No; Hx Alcohol Use: No Hx Substance Use: No Preferred Language: Lithuanian Communication Ability: Unable [facility] Director Required: No Beliefs That Will Affect Care: None Current Living Situation: Spouse and Family Feels Safe at Home: Yes Assistive Devices: Walker Allergies Allergies Allergy/AdvReac Type Severity Reaction Status Date / Time bee venom protein (honey bee) Allergy Mild ANAPHYLAXIS Verified 06/18/21 16:11 sulfamethoxazole Allergy Rash Verified 06/18/21 16:11 [From Bactrim] trimethoprim [From Bactrim] Allergy Rash Verified 06/18/21 16:11 Home Meds Home Medications Medication Instructions Recorded Confirmed lisinopril 20 mg tablet 20 mg PO BID 02/17/19 01/14/23 Previous Rx's Medication Instructions Recorded amlodipine 5 mg tablet (Norvasc) 5 mg PO QAM #30 tabs 05/05/21 ergocalciferol (vitamin D2) 1,250 50,000 unit PO Q7D #5 caps 05/05/21 mcg (50,000 unit) capsule metoprolol succinate 50 mg 50 mg PO QAM #30 tabs 05/05/21 tablet,extended release 24 hr sodium chloride 0.65 % nasal spray 1 spray intranasal TID nasal 05/05/21 aerosol (Saline Nasal) packing #15 mL doxycycline hyclate 100 mg capsule 100 mg PO BID 5 days #10 caps 01/16/23 guaifenesin 400 mg tablet 400 mg PO TID 5 days #15 tabs 01/16/23 Results & Data (ED) Vital Signs Vital Signs - 24 hr 01/14/23 07:02 01/14/23 07:24 01/14/23 07:42 Temperature 36.9 C Temperature Source Oral Pulse Rate 108 H 108 H 109 H Pulse Rate [Apical] Respiratory Rate 20 20 Respiratory Effort / Characteristics Non-Labored Spontaneous Respiratory Depth Normal Respiratory Pattern Regular Blood Pressure 153/86 H Blood Pressure [Right Arm] Blood Pressure Mean 108 Blood Pressure Mean [Right Arm] Blood Pressure Position [Right Arm] Pulse Oximetry 95 95 Oxygen Delivery Method Room Air Room Air Sepsis Recent Fever Within 48 Hours No Sepsis New/Unexplained Change in Mental Status N/A Sepsis Action Taken by Nursing No Action Required 01/14/23 08:37 01/14/23 10:09 Temperature 37.3 C Temperature Source Oral Pulse Rate Pulse Rate [Apical] 93 H Respiratory Rate 20 Respiratory Effort / Characteristics Non-Labored Spontaneous Respiratory Depth Normal Respiratory Pattern Regular Blood Pressure Blood Pressure [Right Arm] 111/79 Blood Pressure Mean Blood Pressure Mean [Right Arm] 89 Blood Pressure Position [Right Arm] Sitting Pulse Oximetry 97 Oxygen Delivery Method Room Air Sepsis Recent Fever Within 48 Hours Sepsis New/Unexplained Change in Mental Status Sepsis Action Taken by Usp Medications Current Medication List: was personally reviewed by me Laboratory Data Attestation: I reviewed the patient's lab results. 01/14/23 07:22 01/14/23 07:22 Lab Results 01/14/23 01/14/23 01/14/23 Range/Units 07:20 07:22 07:22 WBC 12.56 H (4.8-10.8) K/ul RBC 5.50 (4.70-6.10) M/uL Hgb 15.2 (14.0-18.0) g/dl Hct 45.1 (42.0-52.0) % MCV 82.0 (80.0-100.0) fL MCH 27.6 (25.0-34.0) pg MCHC 33.7 (32.0-36.0) g/dL RDW Std Deviation 39.0 (36.4-46.3) fL RDW Coeff of Zachary 13.2 (11.5-14.5) % Plt Count 174 (130-400) K/uL MPV 10.9 (9.4-12.4) fL Immature Gran % (Auto) 0.6 % Neut % (Auto) 86.8 % Lymph % (Auto) 6.5 % Dare % (Auto) 5.7 % Eos % (Auto) 0.1 % Baso % (Auto) 0.3 % Neut # (Auto) 10.90 H (1.40-6.50) K/uL Lymph # (Auto) 0.82 L (1.2-3.4) K/uL Dare # (Auto) 0.72 H (0.11-0.59) K/uL Eos # (Auto) 0.01 (0-0.50) K/uL Baso # (Auto) 0.04 (0-0.2) K/uL Immature Gran # (Auto) 0.07 (0.01-0.20) K/uL Sodium 135 L (136-145) mmol/L Potassium 4.0 (3.5-5.1) mmol/L Chloride 103 (98-107) mmol/L Carbon Dioxide 24 (21-32) mmol/L Anion Gap 8 (3-11) BUN 20 (6-23) mg/dl Creatinine 1.15 (0.6-1.4) mg/dl Est Cr Clr Drug Dosing 51.5 ml/min Est GFR ( Amer) 69.3 ml/min Est GFR (Non-Af Amer) 59.8 ml/min BUN/Creatinine Ratio 17.4 (10-20) Glucose 194 H (70-99(Fasting)) mg/dl POC Glucose (70-99) mg/dl Calcium 9.5 (8.5-10.1) mg/dl Magnesium 1.8 (1.7-2.4) mg/dl Total Bilirubin 1.0 (0.2-1.0) mg/dl AST 21 (13-39) U/L ALT 14 (7-52) U/L Alkaline Phosphatase 50 (34-104) U/L Troponin I High Sens 22.1 H (0-20) pg/ml Total Protein 7.3 (6.0-8.3) gm/dl Albumin 4.4 (3.4-5.0) gm/dl Globulin 2.9 (2.5-4.0) gm/dl Albumin/Globulin Ratio 1.5 (0.9-2) TSH (0.300-4.500) uIu/ml Urine Color Urine Appearance (Clear) Urine pH (4.5-7.5) Ur Specific Stitzer (1.000-1.030) Urine Protein (Negative) Urine Glucose (UA) (Negative) Urine Ketones (Negative) Urine Blood (Negative) Urine Nitrite (Negative) Urine Bilirubin (Negative) Urine Urobilinogen (Negative) Ur Leukocyte Esterase (Negative) Urine WBC (Auto) (0-5) /hpf Urine RBC (Auto) (0-4) /hpf U Hyaline Cast (Auto) (0-5) /lpf U Epithel Cells (Auto) (0-5) /lpf Urine Bacteria (Auto) (Negative) SARS-CoV-2 (PCR) POSITIVE A* (Negative) Influenza Type A (PCR) Negative (Neg) Influenza Type B (PCR) Negative (Neg) RSV (RT-PCR) Negative (Neg) 01/14/23 01/14/23 01/14/23 Range/Units 07:22 07:47 09:44 WBC (4.8-10.8) K/ul RBC (4.70-6.10) M/uL Hgb (14.0-18.0) g/dl Hct (42.0-52.0) % MCV (80.0-100.0) fL MCH (25.0-34.0) pg MCHC (32.0-36.0) g/dL RDW Std Deviation (36.4-46.3) fL RDW Coeff of Zachary (11.5-14.5) % Plt Count (130-400) K/uL MPV (9.4-12.4) fL Immature Gran % (Auto) % Neut % (Auto) % Lymph % (Auto) % Dare % (Auto) % Eos % (Auto) % Baso % (Auto) % Neut # (Auto) (1.40-6.50) K/uL Lymph # (Auto) (1.2-3.4) K/uL Dare # (Auto) (0.11-0.59) K/uL Eos # (Auto) (0-0.50) K/uL Baso # (Auto) (0-0.2) K/uL Immature Gran # (Auto) (0.01-0.20) K/uL Sodium (136-145) mmol/L Potassium (3.5-5.1) mmol/L Chloride (98-107) mmol/L Carbon Dioxide (21-32) mmol/L Anion Gap (3-11) BUN (6-23) mg/dl Creatinine (0.6-1.4) mg/dl Est Cr Clr Drug Dosing ml/min Est GFR ( Amer) ml/min Est GFR (Non-Af Amer) ml/min BUN/Creatinine Ratio (10-20) Glucose (70-99(Fasting)) mg/dl POC Glucose 175 H (70-99) mg/dl Calcium (8.5-10.1) mg/dl Magnesium (1.7-2.4) mg/dl Total Bilirubin (0.2-1.0) mg/dl AST (13-39) U/L ALT (7-52) U/L Alkaline Phosphatase (34-104) U/L Troponin I High Sens (0-20) pg/ml Total Protein (6.0-8.3) gm/dl Albumin (3.4-5.0) gm/dl Globulin (2.5-4.0) gm/dl Albumin/Globulin Ratio (0.9-2) TSH 1.193 (0.300-4.500) uIu/ml Urine Color Yellow Urine Appearance Clear (Clear) Urine pH 6.5 (4.5-7.5) Ur Specific Stitzer 1.023 (1.000-1.030) Urine Protein Trace H (Negative) Urine Glucose (UA) Negative (Negative) Urine Ketones 2+ H (Negative) Urine Blood 1+ H (Negative) Urine Nitrite Negative (Negative) Urine Bilirubin Negative (Negative) Urine Urobilinogen Negative (Negative) Ur Leukocyte Esterase Negative (Negative) Urine WBC (Auto) 1-5 (0-5) /hpf Urine RBC (Auto) 10-30 H (0-4) /hpf U Hyaline Cast (Auto) 1-5 (0-5) /lpf U Epithel Cells (Auto) 5-10 H (0-5) /lpf Urine Bacteria (Auto) Negative (Negative) SARS-CoV-2 (PCR) (Negative) Influenza Type A (PCR) (Neg) Influenza Type B (PCR) (Neg) RSV (RT-PCR) (Neg) Administered Medications Discontinued Medications Acetaminophen (Acetaminophen 325 Mg Tab) 650 mg PO Q4H PRN PRN Reason: pain/fever Stop: 02/13/23 14:06 Last Admin: 01/14/23 17:31 Dose: 650 mg Documented By: QGV Amlodipine Besylate (Amlodipine Besylate 5 Mg Tab) 5 mg PO NOW ONE Stop: 01/14/23 09:06 Last Admin: 01/14/23 09:57 Dose: Not Given Documented By: CATHERINE Amlodipine Besylate (Amlodipine Besylate 5 Mg Tab) 5 mg PO QAM [facility] Stop: 02/14/23 08:59 Last Admin: 01/16/23 09:00 Dose: 5 mg Documented By: Admin: 01/15/23 07:58 Dose: 5 mg Documented By: LEE Enoxaparin Sodium (Enoxaparin Inj 30 Mg/0.3 Ml Syr) 30 mg SQ Q12H [facility] Stop: 02/14/23 09:14 Last Admin: 01/16/23 09:31 Dose: 30 mg Documented By: Admin: 01/15/23 19:45 Dose: 30 mg Documented By: Admin: 01/15/23 10:42 Dose: 30 mg Documented By: LEE Ergocalciferol (Ergocalciferol 50,000 Units 1250 Mcg Cap) 50,000 units PO Th@0900 [facility] Stop: 02/15/23 08:59 Last Admin: 01/16/23 09:00 Dose: 50,000 units Documented By: DUONG Acetaminophen (Ofirmev) 1,000 mg in 100 mls @ 400 mls/hr IV NOW STA Stop: 01/14/23 08:04 Last Infusion: 01/14/23 08:41 Dose: 0 mls/hr Documented By: Admin: 01/14/23 08:22 Dose: 400 mls/hr Documented By: CATHERINE Ceftriaxone Sodium 2,000 mg/ (Dextrose) 70 mls @ 100 mls/hr IV Q24H [facility]; Protocol Stop: 01/17/23 09:14 Last Infusion: 01/16/23 13:16 Dose: 0 mls/hr Documented By: Admin: 01/16/23 09:31 Dose: 100 mls/hr Documented By: Infusion: 01/15/23 11:42 Dose: 0 mls/hr Documented By: Admin: 01/15/23 10:40 Dose: 100 mls/hr Documented By: LEE Doxycycline Hyclate 100 mg/ (Dextrose) 110 mls @ 50 mls/hr IV Q12H [facility]; Protocol Stop: 01/17/23 09:14 Last Infusion: 01/16/23 13:16 Dose: 0 mls/hr Documented By: Admin: 01/16/23 09:31 Dose: 50 mls/hr Documented By: Infusion: 01/15/23 21:57 Dose: 0 mls/hr Documented By: Admin: 01/15/23 19:43 Dose: 50 mls/hr Documented By: Infusion: 01/15/23 13:29 Dose: 0 mls/hr Documented By: Admin: 01/15/23 11:17 Dose: 50 mls/hr Documented By: LEE Lisinopril (Lisinopril 20 Mg Tab) 20 mg PO NOW STA Stop: 01/14/23 09:06 Last Admin: 01/14/23 09:57 Dose: Not Given Documented By: CATHERINE Lisinopril (Lisinopril 20 Mg Tab) 20 mg PO BID [facility] Stop: 02/13/23 20:59 Last Admin: 01/16/23 09:01 Dose: 20 mg Documented By: Admin: 01/15/23 19:45 Dose: 20 mg Documented By: Admin: 01/15/23 07:59 Dose: 20 mg Documented By: Admin: 01/14/23 20:57 Dose: 20 mg Documented By: PARIS Meclizine HCl (Meclizine Hcl 25 Mg Tab) 25 mg PO NOW STA Stop: 01/14/23 07:30 Last Admin: 01/14/23 07:47 Dose: 25 mg Documented By: CATHERINE Metoprolol Succinate (Metoprolol Succ 50mg Ext Rel Tab) 50 mg PO NOW STA Stop: 01/14/23 09:06 Last Admin: 01/14/23 11:00 Dose: 50 mg Documented By: QGV Metoprolol Succinate (Metoprolol Succ 50mg Ext Rel Tab) [facility] Stop: 02/14/23 08:59 Last Admin: 01/16/23 09:00 Dose: 50 mg Documented By: Admin: 01/15/23 07:59 Dose: 50 mg Documented By: LEE Olanzapine (Olanzapine 10 Mg/2.1 Ml Sdv) 2.5 mg IM Q4H PRN PRN Reason: Anxiety/Agitation Stop: 02/14/23 19:22 Last Admin: 01/15/23 23:38 Dose: 2.5 mg Documented By: Admin: 01/15/23 19:32 Dose: 2.5 mg Documented By: JEREMIAS Imaging Data Radiologist's Impression: Chest X-Ray 01/14/23 07:24 XR chest 1V portable CLINICAL HISTORY: weakness COMPARISON STUDY: Chest radiograph May 03, 2021. FINDINGS: Old left clavicular fracture is incidentally noted. Lung volumes are diminished. This is unchanged. There is no pneumothorax or pleural effusion. Cardiomediastinal silhouette is stable. There has been no significant change in appearance of the chest. IMPRESSION: No acute cardiopulmonary findings. ACT 112: Negative or not required by law. Electronically signed by: Roverto Koch M.D. 01/14/2023 8:[address] 01/14/23 07:28 CT OF THE HEAD WITHOUT CONTRAST CLINICAL HISTORY: Dizzy, fall COMPARISON STUDY: Head CT May 18, 2014. CT DOSE: 614.27 mGy.cm TECHNIQUE: Helical axial images of the head were obtained without IV contrast. Automated exposure control was utilized for the study. A dose lowering technique was utilized adhering to the principles of ALARA. FINDINGS: No acute intracranial hemorrhage, midline shift or mass effect is present. There is prominence of the extra-axial spaces. This is likely due to atrophy. Basal cisterns are patent. Ventricular system is unremarkable. Left occipital craniectomy is noted with metallic plate. There are postoperative findings within the posterior fossa which are unchanged. There are no findings to suggest acute dural sinus thrombosis or acute territorial infarct. Nasal bone deformities are likely chronic. No acute calvarial fracture is present. Minimal sinus mucosal thickening. IMPRESSION: 1. No acute intracranial findings. 2. No acute calvarial fracture. 3. Stable postoperative findings. ACT 112: Negative or not required by law. Electronically signed by: Roverto Koch M.D. 01/14/2023 8:47 AM Discharge Plan Visit Data Chief Complaint: Illness ED Provider: Ewelina Ríos Discharge Problem: Diabetes, Vertigo Patient Disposition: Admitted As Inpatient Discharge Instructions Interventions: ED Discharge Assessment Last Done: 01/14/23 17:46
--- NOTE | 2023-01-14 10:11 | History & Physical Report ---
Date of Service January 14, 2023 Assessment & Plan (1) COVID-19: (2) Acute metabolic encephalopathy: (3) Generalized weakness: (4) HTN, goal below 140/80: (5) Diabetes mellitus, type 2: Plan This is an 82yo M with a PMH diet controlled DM II, HTN, tobacco use who presents with confusion and multiple falls overnight and was found to have acute metabolic encephalopathy and multiple falls in setting of covid 19. Acute metabolic encephalopathy Generalized weakness with multiple falls overnight COVID-19 Presenting with confused behavior, generalized weakness with multiple falls overnight and recent COVID exposure from Afebrile and hemodynamically stable. Mild leukocytosis of 12.56 K. SARS Cov 2 PCR positive. Saturating at 97% on room air Isolation precautions for COVID but no Decadron or remdesivir indicated as patient denies shortness of breath and is saturating at 97% on room air Ordered Tessalon Perles and Robitussin as needed for cough and congestion CT head without acute intracranial changes. Chest x-ray and urinalysis without any acute abnormalities PT/OT evaluation, fall precautions, aspiration precautions Mentation already improving Abnormal EKG Admitting EKG with frequent PVCs, left axis deviation, nonspecific intraventricular contraction delay, possible previous lateral and inferior infarcts. No significant change from 2020 Initial high-sensitivity troponin 22, will repeat x1 for completeness and monitor on telemetry with routine 2D echo Type 2 diabetes Diet controlled at home Will add SSI while in-patient if indicated BSG AC HS HTN Given missed doses of Toprol, lisinopril and amlodipine this morning in ED and BP now normotensive DVT Ppx: SQ lovenox Code status: FULL PCP: Marsha Harrington Dispo: Admitted to [facility] tele Patient seen in collaboration with Dr. Cornelius. Please see addendum. History of Present Illness Chief Complaint: AMS, congestion Primary Care Provider: Sourav Harrington, This is an 82yo M with a PMH diet controlled DM II, HTN, tobacco use who presents with confusion and multiple falls overnight. History per son is that both of his parents have had cold symptoms -patient developed symptoms yesterday. Both tested positive for covid today. Patient was up overnight and had multiple falls and was confused, making coffee at 1 in the morning. Walked out of his home and accidentally locked himself outside and called son for additional support. Lives at home with elderly and family feels it is unsafe for patient to be at home right now. Feels congested and is sneezing. Unsure if he is short of breath. No fever, chills, chest pain, N/V, abdominal pain or dysuria. Patient ambulates with cane sometimes. Unsure if he took AM medications or not. Allergies Allergy/AdvReac Type Severity Reaction Status Date / Time bee venom protein (honey bee) Allergy Mild ANAPHYLAXIS Verified 06/18/21 16:11 sulfamethoxazole Allergy Rash Verified 06/18/21 16:11 [From Bactrim] trimethoprim [From Bactrim] Allergy Rash Verified 06/18/21 16:11 Home Medications Medication Instructions Recorded Confirmed Type lisinopril 20 mg tablet 20 mg PO BID 02/17/19 01/14/23 History amlodipine 5 mg tablet (Norvasc) 5 mg PO QAM #30 tabs 05/05/21 01/14/23 Rx ergocalciferol (vitamin D2) 1,250 50,000 unit PO Q7D #5 caps 05/05/21 01/14/23 Rx mcg (50,000 unit) capsule metoprolol succinate 50 mg 50 mg PO QAM #30 tabs 05/05/21 01/14/23 Rx tablet,extended release 24 hr sodium chloride 0.65 % nasal spray 1 spray intranasal TID nasal 05/05/21 01/14/23 Rx aerosol (Saline Nasal) packing #15 mL Past Med/Surg History Medical History (Updated 01/14/23 @ 10:50 by Sierra Berkowitz PA-C) Diabetes mellitus, type 2 DIET AND SUPPLEMENT FOR TX. Hypertension Transient ischemic attack (TIA) 2009, NO RESIDUAL EFFECT. Surgical History History of cataract extraction with lens replacement History of colonoscopy History of herniorrhaphy History of repair of rotator cuff B/L History of surgery 2009, [facility], SURGERY FOR TRIGEMINAL NEURALGIA Family History Other Hypertension No family history of adverse response to anesthesia No family history of bleeding disorder Stroke Social History Smoking Status: Never smoker Tobacco Type: Smokeless Tobacco (Dip or Chew) Second Hand Exposure: No; Hx Alcohol Use: No Hx Substance Use: No Preferred Language: Slovenian Communication Ability: Effective Route Sales Person Required: No Beliefs That Will Affect Care: None Current Living Situation: Spouse Feels Safe at Home: Yes Assistive Devices: None Review of Systems Review of Systems: At least ten systems reviewed and negative except as noted in the HPI. Physical Exam Physical Exam: Please see Dr. Cornelius's addendum for physical exam. Results & Data Results & Data ([facility]) Vital Signs (Past 12 Hours) Vital Signs Temp Pulse Pulse Resp BP BP Pulse Ox 01/14/23 10:09 93 H 20 111/79 97 01/14/23 08:37 37.3 C 01/14/23 07:42 109 H 01/14/23 07:24 108 H 20 95 01/14/23 07:02 36.9 C 108 H 20 153/86 H 95 O2 Del Method 01/14/23 10:09 Room Air 01/14/23 08:37 01/14/23 07:42 01/14/23 07:24 Room Air 01/14/23 07:02 Room Air Laboratory Results Short CBC 01/14/23 Range/Units 07:22 WBC 12.56 H (4.8-10.8) K/ul Hgb 15.2 (14.0-18.0) g/dl Hct 45.1 (42.0-52.0) % Plt Count 174 (130-400) K/uL BMP 01/14/23 07:22 Sodium 135 L Potassium 4.0 Chloride 103 Carbon Dioxide 24 BUN 20 Creatinine 1.15 Glucose 194 H Calcium 9.5 Liver Function 01/14/23 Range/Units 07:22 Total Bilirubin 1.0 (0.2-1.0) mg/dl AST 21 (13-39) U/L ALT 14 (7-52) U/L Alkaline Phosphatase 50 (34-104) U/L Albumin 4.4 (3.4-5.0) gm/dl Diagnostic Findings Chest X-Ray 01/14/23 07:24 XR chest 1V portable CLINICAL HISTORY: weakness COMPARISON STUDY: Chest radiograph May 03, 2021. FINDINGS: Old left clavicular fracture is incidentally noted. Lung volumes are diminished. This is unchanged. There is no pneumothorax or pleural effusion. Cardiomediastinal silhouette is stable. There has been no significant change in appearance of the chest. IMPRESSION: No acute cardiopulmonary findings. ACT 112: Negative or not required by law. Electronically signed by: Roverto Koch M.D. 01/14/2023 8:[address] 01/14/23 07:28 CT OF THE HEAD WITHOUT CONTRAST CLINICAL HISTORY: Dizzy, fall COMPARISON STUDY: Head CT May 18, 2014. CT DOSE: 614.27 mGy.cm TECHNIQUE: Helical axial images of the head were obtained without IV contrast. Automated exposure control was utilized for the study. A dose lowering technique was utilized adhering to the principles of ALARA. FINDINGS: No acute intracranial hemorrhage, midline shift or mass effect is present. There is prominence of the extra-axial spaces. This is likely due to atrophy. Basal cisterns are patent. Ventricular system is unremarkable. Left occipital craniectomy is noted with metallic plate. There are postoperative findings within the posterior fossa which are unchanged. There are no findings to suggest acute dural sinus thrombosis or acute territorial infarct. Nasal bone deformities are likely chronic. No acute calvarial fracture is present. Minimal sinus mucosal thickening. IMPRESSION: 1. No acute intracranial findings. 2. No acute calvarial fracture. 3. Stable postoperative findings. ACT 112: Negative or not required by law. Electronically signed by: Roverto Koch M.D. 01/14/2023 8:47 AM Supervising Physician Co-Signing Physician Notes Pt is a 82 y/o M with hx of HTN, HLD, DDD, DMII (Diet controlled) admitted for acute confusion with fall. PE: NAD, well developed Lungs: CTA, no wheezing or crackles Cardiac: Normal S1/S2, no murmur Abd: ND, NT, soft Neuro: CN II-XII intact, EOMI, PERRLA, normal motor strength MSK: no LE edema Psych: Normal Affect, AAOx3 A/P: Metabolic encephalopathy with fall: -likely 2/2 COVID infection -UA showed no sign of infection -due to EKG finding: diffuse wide QRS ---- will get echo and admit pt to tele -trop was 22.1 ---- pt denied any CP ---- will trend -CXR: no acute finding and pt is not hypoxic --- thus symptoms management only at this time --- symptoms started on 01/09 therefore not a candidate for paxlovid -CT head: no acute finding -will get PT/OT -put pt on isolation Other Chronic conditions: plan as above Agree with A/P by Sierra Berkowitz PA-C
[2023-01-14] MEDS ORDERED: BENZONATATE 100 MG CAPSULE PO PRN (10:50)
[2023-01-14] MEDS ORDERED: guaiFENesin SUGAR FREE 100 MG/5 ML UDC PO PRN (10:51)
--- NOTE | 2023-01-14 10:51 | Electrocardiogram Report ---
Test Reason : Blood Pressure : / mmHG Vent. Rate : 108 BPM Atrial Rate : 108 BPM P-R Int : 192 ms QRS Dur : 148 ms QT Int : 376 ms P-R-T Axes : 009 -43 109 degrees QTc Int : 503 ms Sinus tachycardia with Premature atrial complexes with Aberrant conduction Left axis deviation Non-specific intra-ventricular conduction block Abnormal ECG Confirmed by Yoandy Flor ([id number]) on 01/14/2023 10:51:27 AM Referred By: REFERRED SELF Confirmed By:Dean Flor
[2023-01-14 11:06] LABS: Appearance Urine Clear (Clear); Bacteria Urine Automated Negative (Negative); Bilirubin Urine Negative (Negative); Blood Urine 1+ (Negative); Color Urine Yellow; Glucose Urine UA Negative (Negative); Ketones Urine 2+ (Negative); Leukocyte Esterase Urine Negative (Negative); Nitrite Urine Negative (Negative); Protein Urine Trace (Negative); Specific Gravity Urine 1.023 (1.000-1.030); Urobilinogen Urine Negative (Negative); pH Urine 6.5 (4.5-7.5)
[2023-01-14] MEDS ORDERED: ACETAMINOPHEN 325 MG TAB PO PRN (14:07)
[2023-01-14] MEDS ORDERED: POLYETHYLENE (MIRALAX) 17 GM PACK PO PRN (14:07)
[2023-01-14] MEDS ORDERED: ONDANSETRON INJ 2 MG/ML 2 ML VIAL IV PRN (14:07)
[2023-01-14] MEDS: lisinopril 20 MG TAB PO SCH (20:57)
[2023-01-15] MEDS: amLODIPine BESYLATE 5 MG TAB PO SCH (07:58)
[2023-01-15] MEDS: lisinopril 20 MG TAB PO SCH ×2 (07:59→19:45)
[2023-01-15] MEDS: METOPROLOL SUCC 50MG EXT REL TAB PO SCH (07:59)
--- NOTE | 2023-01-15 09:13 | Hospitalist Progress Note ---
Date of Service January 15, 2023 Assessment & Plan (1) COVID-19: (2) Acute metabolic encephalopathy: (3) Generalized weakness: (4) HTN, goal below 140/80: (5) Diabetes mellitus, type 2: Plan This is an 82yo M with a PMH diet controlled DM II, HTN, tobacco use who presents with confusion and multiple falls overnight and was found to have acute metabolic encephalopathy and multiple falls in setting of covid 19. Acute metabolic encephalopathy Generalized weakness with multiple falls overnight COVID-19 Presenting with confused behavior, generalized weakness with multiple falls overnight and recent COVID exposure from Afebrile and hemodynamically stable on admission however soon after developed Fever Mild leukocytosis of 12.56 K. SARS Cov 2 PCR positive. Saturating at 97% on room air CXR - unremarkable Isolation precautions for COVID but no Decadron or remdesivir indicated as patient denies shortness of breath and is saturating at 97% on room air Blood cultx ordered - pending procal ordered Given fever and elderly age w/ AMS - started empiric abx - ceftriaxone and doxy Tessalon Perles and Robitussin as needed for cough and congestion CT head without acute intracranial changes. urinalysis without any acute abnormalities PT/OT evaluation, fall precautions, aspiration precautions Abnormal EKG Admitting EKG with frequent PVCs, left axis deviation, nonspecific intraventricular contraction delay, possible previous lateral and inferior infarcts. No significant change from 2020 - per admitting provider Initial high-sensitivity troponin 22, repeat troponin 44 denies chest pain monitored on telemetry echo ordered will discuss further w/ cardiology Type 2 diabetes Diet controlled at home Will add SSI while in-patient if indicated BSG AC HS HTN - cont. home Toprol, lisinopril and amlodipine - monito BP DVT Ppx: SQ lovenox Code status: FULL PCP: Dr. Marsha Harrington Dispo: med tele Admission and Anticipated Discharge Date Admission Date: January 14, 2023 Subjective Patient seen in follow-up of confusion, found outside of the house at 1 AM, positive COVID 19 Initially on admission, patient afebrile, since then developed fever Appears to be still confused, trying to leave the room Currently sitting up in bed, in no acute distress, answering simple questions appropriately, however then tries to get his clothes and not listening to staff He does report having fever last evening Denies chest pain shortness of breath Denies abdominal pain Reports some rhinorrhea, and reports family member having COVID19 Review of Systems Review of Systems: All systems reviewed & are unremarkable except as noted in Subjective Physical Exam Physical Exam: General: WD/WN elderly M in NAD Lungs: CTA, no wheezing or crackles Cardiac: Normal S1/S2, no murmur Abd: ND, NT, soft MSK: no LE edema Neuro/Psych: awake alert, answering simple questions appropriately, moves extremities, follows commands however then tries to leave the room Results & Data Results & Data ([facility]) Vital Signs (Past 12 Hours) Vital Signs Temp Pulse Pulse Pulse Resp BP Pulse Ox 01/15/23 08:34 01/15/23 07:49 37.6 C H 103 H 16 121/79 95 01/15/23 03:16 38.1 C H 108 H 20 166/90 H 92 01/14/23 21:59 98 H O2 Del Method 01/15/23 08:34 Room Air 01/15/23 07:49 Room Air 01/15/23 03:16 Room Air 01/14/23 21:59 Laboratory Results 01/15/23 01/14/23 01/14/23 Range/Units 07:36 14:19 09:44 POC Glucose 156 H (70-99) mg/dl Troponin I High Sens 40.6 H D (0-20) pg/ml Urine Color Yellow Urine Appearance Clear (Clear) Urine pH 6.5 (4.5-7.5) Ur Specific [place] 1.023 (1.000-1.030) Urine Protein Trace H (Negative) Urine Glucose (UA) Negative (Negative) Urine Ketones 2+ H (Negative) Urine Blood 1+ H (Negative) Urine Nitrite Negative (Negative) Urine Bilirubin Negative (Negative) Urine Urobilinogen Negative (Negative) Ur Leukocyte Esterase Negative (Negative) Urine WBC (Auto) 1-5 (0-5) /hpf Urine RBC (Auto) 10-30 H (0-4) /hpf U Hyaline Cast (Auto) 1-5 (0-5) /lpf U Epithel Cells (Auto) 5-10 H (0-5) /lpf Urine Bacteria (Auto) Negative (Negative) Medications Administered Current Inpatient Medications Acetaminophen (Acetaminophen 325 Mg Tab) 650 mg PO Q4H PRN PRN Reason: pain/fever Stop: 02/13/23 14:06 Last Admin: 01/14/23 17:31 Dose: 650 mg Amlodipine Besylate (Amlodipine Besylate 5 Mg Tab) [facility] [place] Stop: 02/14/23 08:59 Last Admin: 01/15/23 07:58 Dose: 5 mg Benzonatate (Benzonatate 100 Mg Capsule) 100 mg PO TID PRN PRN Reason: cough Stop: 02/13/23 13:59 Ergocalciferol (Ergocalciferol 50,000 Units 1250 Mcg Cap) 50,000 units PO Th@0900 [facility] Stop: 02/15/23 08:59 Guaifenesin (Guaifenesin Sugar Free 100 Mg/5 Ml Udc) 100 mg PO Q6H PRN PRN Reason: Cough Stop: 02/13/23 10:50 Ceftriaxone Sodium 1,000 mg/ (Dextrose) 50 mls @ 100 mls/hr IV Q24H [facility]; Protocol Stop: 01/17/23 09:14 Doxycycline Hyclate 100 mg/ (Dextrose) 110 mls @ 50 mls/hr IV Q12H [facility] Stop: 01/17/23 09:14 Lisinopril (Lisinopril 20 Mg Tab) 20 mg PO BID [facility] Stop: 02/13/23 20:59 Last Admin: 01/15/23 07:59 Dose: 20 mg Metoprolol Succinate (Metoprolol Succ 50mg Ext Rel Tab) 50 [facility] [place] Stop: 02/14/23 08:59 Last Admin: 01/15/23 07:59 Dose: 50 mg Ondansetron HCl (Ondansetron Inj 2 Mg/Ml 2 Ml Vial) 4 mg IV Q6H PRN PRN Reason: Nausea Stop: 02/13/23 14:06 Polyethylene Glycol (Polyethylene (Miralax) 17 Gm Pack) 17 gm PO DAILY PRN PRN Reason: Constipation Stop: 02/13/23 14:06
--- NOTE | 2023-01-15 10:20 | Electrocardiogram Report ---
Test Reason : Blood Pressure : / mmHG Vent. Rate : 107 BPM Atrial Rate : 107 BPM P-R Int : 184 ms QRS Dur : 154 ms QT Int : 384 ms P-R-T Axes : -20 -34 121 degrees QTc Int : 512 ms Poor data quality, interpretation may be adversely affected Sinus tachycardia Left axis deviation Non-specific intra-ventricular conduction block Lateral infarct (cited on or before 15-JAN-2023) Inferior infarct (cited on or before 15-JAN-2023) Abnormal ECG When compared with ECG of 14-JAN-2023 07:21, Aberrant conduction is no longer Present T wave amplitude has increased in Lateral leads Confirmed by Yoandy Flor ([id number]) on 01/15/2023 10:20:19 AM Referred By: REFERRED SELF Confirmed By:Dean Flor
[2023-01-15 10:28] LABS: Hematocrit (blood only) 45.1 % (42.0-52.0); Hemoglobin 15.2 g/dl (14.0-18.0); Mean Corpuscular Hemoglobin 27.7 pg (25.0-34.0); Mean Corpuscular Hgb Conc 33.7 g/dL (32.0-36.0); Mean Corpuscular Volume 82.3 fL (80.0-100.0); Mean Platelet Volume 11.1 fL (9.4-12.4); Platelet Count 176 K/uL (130-400); RDW Coefficient of Variation 13.2 % (11.5-14.5); RDW Standard Deviation 39.9 fL (36.4-46.3); Red Blood Count 5.48 M/uL (4.70-6.10); White Blood Count 10.01 K/ul (4.8-10.8)
[2023-01-15] MEDS: cefTRIAXone SODIUM 2,000 MG in DEXTROSE 5% 50 ML IV SCH (10:40)
[2023-01-15] MEDS: ENOXAPARIN INJ 30 MG/0.3 ML SYR SQ SCH ×2 (10:42→19:45)
[2023-01-15 10:43] LABS: Albumin Globulin Ratio 1.4 (0.9-2); Albumin Level 4.1 gm/dl (3.4-5.0); BUN Creatinine Ratio 19.2 (10-20); Bilirubin,Total 1.1 mg/dl (0.2-1.0); Calcium 9.1 mg/dl (8.5-10.1); Creatinine Clr Calc Pharmacy 59.6 ml/min; Est GFR (Non-African American) 71.6 ml/min; Globulin 2.9 gm/dl (2.5-4.0); Magnesium 1.8 mg/dl (1.7-2.4); Phosphorus 2.2 mg/dl (2.5-4.9); Potassium 3.6 mmol/L (3.5-5.1)
[2023-01-15 11:08] LABS: Troponin I High Sensitivity 33.3 pg/ml (0-20)
[2023-01-15] MEDS: DOXYCYCLINE HYCLATE 100 MG in DEXTROSE 5% 100 ML IV SCH ×2 (11:17→19:43)
[2023-01-15] MEDS: OLANZapine 10 MG/2.1 ML SDV IM PRN ×2 (19:32→23:38)
[2023-01-16 07:50] LABS: Hematocrit (blood only) 45.4 % (42.0-52.0); Hemoglobin 15.4 g/dl (14.0-18.0); Mean Corpuscular Hemoglobin 27.4 pg (25.0-34.0); Mean Corpuscular Hgb Conc 33.9 g/dL (32.0-36.0); Mean Corpuscular Volume 80.6 fL (80.0-100.0); Mean Platelet Volume 11.1 fL (9.4-12.4); Platelet Count 169 K/uL (130-400); RDW Coefficient of Variation 13.2 % (11.5-14.5); RDW Standard Deviation 38.3 fL (36.4-46.3); Red Blood Count 5.63 M/uL (4.70-6.10); White Blood Count 8.65 K/ul (4.8-10.8)
--- NOTE | 2023-01-16 08:35 | Cardiology Consultation ---
Date of Consultation January 16, 2023 Assessment & Plan (1) Generalized weakness: (2) Acute metabolic encephalopathy: (3) COVID-19: (4) HTN, goal below 140/80: (5) Abnormal EKG: (6) Troponin I above reference range: EKG unchanged echo without wall motion abnormality no cardiac complaints no further testing or intervention necessary from a cardiac standpoint History of Present Illness Reason for Consultation: abnormal ekg Requesting Physician: Dr. Sandhu Attending Physician: Antolin Sandhu MD History of Present Illness Medical Illnesses: 1. Diabetes. 2. Hypertension. 3. Hyperlipidemia. 4. Erectile dysfunction. 5. Presbycusis. 6. Cervical disc degeneration. 7. Osteoarthritis. 8. Negative exercise stress test 06/2012 for abnormal EKG suggesting inferior infarct, patient was asymptomatic. 9. Remote history of Nosebleeds as a child Allergies Allergy/AdvReac Type Severity Reaction Status Date / Time bee venom protein (honey bee) Allergy Mild ANAPHYLAXIS Verified 06/18/21 16:11 sulfamethoxazole Allergy Rash Verified 06/18/21 16:11 [From Bactrim] trimethoprim [From Bactrim] Allergy Rash Verified 06/18/21 16:11 Home Medications Medication Instructions Recorded Confirmed Type lisinopril 20 mg tablet 20 mg PO BID 02/17/19 01/14/23 History amlodipine 5 mg tablet (Norvasc) 5 mg PO QAM #30 tabs 05/05/21 01/14/23 Rx ergocalciferol (vitamin D2) 1,250 50,000 unit PO Q7D #5 caps 05/05/21 01/14/23 Rx mcg (50,000 unit) capsule metoprolol succinate 50 mg 50 mg PO QAM #30 tabs 05/05/21 01/14/23 Rx tablet,extended release 24 hr sodium chloride 0.65 % nasal spray 1 spray intranasal TID nasal 05/05/21 01/14/23 Rx aerosol (Saline Nasal) packing #15 mL Patient History Medical History Diabetes mellitus, type 2 DIET AND SUPPLEMENT FOR TX. Hypertension Transient ischemic attack (TIA) 2009, NO RESIDUAL EFFECT. Surgical History History of cataract extraction with lens replacement History of colonoscopy History of herniorrhaphy History of repair of rotator cuff B/L History of surgery 2010, [facility], SURGERY FOR TRIGEMINAL NEURALGIA Family History Other Hypertension No family history of adverse response to anesthesia No family history of bleeding disorder Stroke Social History Smoking Status: Never smoker Tobacco Type: Smokeless Tobacco (Dip or Chew) Second Hand Exposure: No; Hx Alcohol Use: No Hx Substance Use: No Preferred Language: Serbian Communication Ability: Effective Phone Circuit Operator Required: No Beliefs That Will Affect Care: None Current Living Situation: Spouse and Family Feels Safe at Home: Yes Assistive Devices: Denture - Upper, Denture - Lower and Glasses Results & Data ([facility]) Vital Signs (Past 12 Hours) Vital Signs Temp Pulse Pulse Resp BP Pulse Ox O2 Del Method 01/16/23 07:19 37.0 C 111 H 20 153/81 H 94 Room Air 01/16/23 04:00 36.6 C 109 H 18 140/84 95 Room Air 01/15/23 23:47 92 H 01/15/23 22:58 37.0 C 88 18 124/88 96 Room Air
[2023-01-16 08:43] LABS: Albumin Globulin Ratio 1.4 (0.9-2); BUN Creatinine Ratio 18.8 (10-20); Bilirubin,Total 0.7 mg/dl (0.2-1.0); Calcium 9.2 mg/dl (8.5-10.1); Creatinine Clr Calc Pharmacy 60.2 ml/min; Est GFR (African American) 86.2 ml/min; Est GFR (Non-African American) 74.4 ml/min; Globulin 2.9 gm/dl (2.5-4.0); Magnesium 1.9 mg/dl (1.7-2.4); Phosphorus 2.6 mg/dl (2.5-4.9); Potassium 3.7 mmol/L (3.5-5.1); Total Protein 6.9 gm/dl (6.0-8.3)
[2023-01-16] MEDS: amLODIPine BESYLATE 5 MG TAB PO SCH (09:00)
[2023-01-16] MEDS ORDERED: ERGOCALCIFEROL 50,000 UNITS 1250 MCG CAP PO SCH (09:00)
[2023-01-16] MEDS: METOPROLOL SUCC 50MG EXT REL TAB PO SCH (09:00)
[2023-01-16] MEDS: lisinopril 20 MG TAB PO SCH (09:01)
[2023-01-16] MEDS: ENOXAPARIN INJ 30 MG/0.3 ML SYR SQ SCH (09:31)
[2023-01-16] MEDS: cefTRIAXone SODIUM 2,000 MG in DEXTROSE 5% 50 ML IV SCH (09:31)
[2023-01-16] MEDS: DOXYCYCLINE HYCLATE 100 MG in DEXTROSE 5% 100 ML IV SCH (09:31)
--- NOTE | 2023-01-16 18:02 | Discharge Summary ---
Date of Service January 16, 2023 Admission HPI Per Admitting Provider This is an 82yo M with a PMH diet controlled DM II, HTN, tobacco use who presents with confusion and multiple falls overnight. History per son is that both of his parents have had cold symptoms -patient developed symptoms yesterday. Both tested positive for covid today. Patient was up overnight and had multiple falls and was confused, making coffee at 1 in the morning. Walked out of his home and accidentally locked himself outside and called son for additional support. Lives at home with elderly and family feels it is unsafe for patient to be at home right now. Feels congested and is sneezing. Uns ure if he is short of breath. No fever, chills, chest pain, N/V, abdominal pain or dysuria. Patient ambulates with cane sometimes. Unsure if he took AM medications or not. Admission Exam Per Admitting Provider NAD, well developed Lungs: CTA, no wheezing or crackles Cardiac: Normal S1/S2, no murmur Abd: ND, NT, soft Neuro: CN II-XII intact, EOMI, PERRLA, normal motor strength MSK: no LE edema Psych: Normal Affect, AAOx3 Principal Diagnosis altered mental status / metabolic encephalopathy Fever +covid 19 Discharge Exam General: WD/WN elderly M in NAD Lungs: CTA, no wheezing or crackles Cardiac: Normal S1/S2, no murmur Abd: ND, NT, soft MSK: no LE edema Neuro/Psych: awake alert, answering simple questions appropriately, moves extremities, follows commands however then tries to leave the room Discharge Data Allergies Allergy/AdvReac Type Severity Reaction Status Date / Time bee venom protein (honey bee) Allergy Mild ANAPHYLAXIS Verified 06/18/21 16:11 sulfamethoxazole Allergy Rash Verified 06/18/21 16:11 [From Bactrim] trimethoprim [From Bactrim] Allergy Rash Verified 06/18/21 16:11 Consultations 01/14/23 12:11 ED Decision to Admit Stat 01/15/23 11:15 Consult Cardiology Routine Ordered Studies 01/14/23 07:28 CT head/brain wo con Stat FINDINGS: No acute intracranial hemorrhage, midline shift or mass effect is present. There is prominence of the extra-axial spaces. This is likely due to atrophy. Basal cisterns are patent. Ventricular system is unremarkable. Left occipital craniectomy is noted with metallic plate. There are postoperative fi ndings within the posterior fossa which are unchanged. There are no findings to suggest acute dural sinus thrombosis or acute territorial infarct. Nasal bone deformities are likely chronic. No acute calvarial fracture is present. Minimal sinus mucosal thickening. IMPRESSION: 1. No acute intracranial findings. 2. No acute calvarial fracture. 3. Stable postoperative findings. Hospital Course (1) COVID-19: (2) Acute metabolic encephalopathy: (3) Generalized weakness: (4) HTN, goal below 140/80: (5) Diabetes mellitus, type 2: Plan This is an 82yo M with a PMH diet controlled DM II, HTN, tobacco use who presents with confusion and multiple falls overnight and was found to have acute metabolic encephalopathy and multiple falls in setting of covid 19. Acute metabolic encephalopathy Generalized weakness with multiple falls overnight COVID-19 Presenting with confused behavior, generalized weakness with multiple falls overnight and recent COVID exposure from Afebrile and hemodynamically stable on admission however soon after developed Fever Mild leukocytosis of 12.56 K. SARS Cov 2 PCR positive. Saturating at 97% on room air CXR - unremarkable Isolation precautions for COVID but no Decadron or remdesivir indicated as patient denies shortness of breath and is saturating at 97% on room air Blood cultx ordered - pending procal 0.15 wnl Given fever and elderly age w/ AMS - started empiric abx - ceftriaxone and doxy Tessalon Perles and Robitussin as needed for cough and congestion CT head without acute intracranial changes. urinalysis without any acute abnormalities PT/OT evaluation, fall precautions, aspiration precautions Discussed with pt's family over the phone - report that pt has hx of AMS when in hospital and gets much better at home. Given we haven't found any other major cause of pt's falls/infection besides covid , they would like to take the pt tong e. As pt is hemodynamically stable and breathing on room air, and is ambulatory agreed to discharge home with family and close PCP follow up. Abnormal EKG Admitting EKG with frequent PVCs, left axis deviation, nonspecific intraventricular contraction delay, possible previous lateral and inferior infarcts. No significant change from 2020 - per admitting provider Initial high-sensitivity troponin 22, repeat troponin 44 denies chest pain monitored on telemetry echo obtained cardiology consulted Type 2 diabetes Diet controlled at home BSG AC HS HTN - cont. home Toprol, lisinopril and amlodipine - monitor BP Total Time Total Time Spent Total Time Spent (In Minutes): 40 Discharge Plan Discharge Items Patient Disposition: Home - Self-Care Reason For Visit: ACUTE METABOLIC ENCEPH., COVID, MULTIPLE FALLS Discharge Diagnosis: altered mental status / metabolic encephalopathy Fever +covid 19 Activity: Per Instructions section Non-emergency contact: Primary Care Provider Call non-emergency contact if: you have any medication questions and your symptoms worsen Follow-up/Referrals: Sourav Harrington, [Primary Care Provider] - Diet: Regular Addtl Attending Provider Instructions: Follow-up with your primary care physician within 1 week. Finish the antibiotic course, with doxycycline, as prescribed. Also recommend taking guaifenesin, as prescribed. Pending Studies at Discharge: Yes Studies:: final blood cultures Stand-Alone Forms: [facility] [place], Smoking Cessation Medications and DC Order Prescriptions: Continued lisinopril 20 mg Tablet 20 mg PO BID amlodipine [Norvasc] 5 mg Tablet 5 mg PO QAM Qty: 30 0RF metoprolol succinate 50 mg Tablet Extended Release 24 Hr 50 mg PO QAM Qty: 30 0RF ergocalciferol (vitamin D2) 1,250 mcg (50,000 unit) Capsule 50,000 unit PO Q7D Qty: 5 0RF Rx Instructions: Saline Nasal 0.65 % aerosol,spray 1 spray intranasal TID Qty: 15 0RF Discharge Orders: Discharge Order (Routine); Ordered 01/16/23 Ordered By: Antolin Sandhu Admission Data Admit Date/Time: 01/14/23 10:19 Attending Provider: Antolin Sandhu Admit Provider: Hyun Cornelius Primary Care Provider: Sourav Harrington Other Providers: Jimmy Daniel Other Interventions: Discharge Summary Assessment (RN) Last Done: 01/16/23 19:09
== END 2023-01-16 19:40 | disposition home or self-care (01) | DRG 177 ==
LOC: ED 07:16 → SUATTDRO 10:19 → EDINP 10:19 → 2N 17:46
DX: F17.220 Nicotine dependence, chewing tobacco, uncomplicated; R29.6 Repeated falls; Z86.73 Personal history of transient ischemic attack (TIA), and cerebral infarction without residual deficits; G93.41 Metabolic encephalopathy; Z91.030 Bee allergy status; U07.1 COVID-19; R53.1 Weakness; R77.8 Other specified abnormalities of plasma proteins; Z88.2 Allergy status to sulfonamides; Z88.1 Allergy status to other antibiotic agents; Z79.899 Other long term (current) drug therapy; I10 Essential (primary) hypertension; E11.9 Type 2 diabetes mellitus without complications